=== PATIENT | male | born 1950 | race Caucasian/White ===

== ENCOUNTER 2023-10-30 11:20 | Emergency (ER) | payer OTHER, MEDICARE, SELFPAY ==
--- NOTE | ~2023-10-30 | XR_ITS ---
EXAMINATION: XR HAND/WRIST, LEFT CLINICAL INFORMATION: Pain COMPARISON: None TECHNIQUE: Four views of the left hand and wrist. FINDINGS: Diffuse bone demineralization. Bony alignment is anatomic. No visible acute fracture or dislocation. Arthritis present. More prominent findings of severe triscaphe joint, moderate-severe first CMC joint arthritis. No abnormal soft tissue calcification seen. XR/XR hand wrist LT IMPRESSION: Osteopenia. No radiographic evidence of acute fracture. Arthritis present. Severe triscaphe joint arthritis.
--- NOTE | ~2023-10-30 | XR_ITS ---
EXAMINATION: XR SHOULDER, LEFT CLINICAL INFORMATION: Pain COMPARISON: None available. TECHNIQUE: Three views of the left shoulder. FINDINGS: Mild acromioclavicular arthritis. Mild glenohumeral joint arthritis. No evidence of acute fracture or dislocation. No abnormal soft tissue calcification. XR/XR shoulder LT min 2V IMPRESSION: Mild glenohumeral and acromioclavicular arthritis.
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
--- NOTE | ~2023-10-30 | XR_ITS ---
EXAMINATION: XR CHEST CLINICAL INFORMATION: Shortness of breath COMPARISON: None available. TECHNIQUE: 2 frontal view of the chest was obtained. FINDINGS: Cardiac and mediastinal silhouette is within normal limits. There is hazy opacity in the left lung base, which could reflect small pleural pleural effusion or atelectasis. Airspace opacity right upper lobe measuring 3.2 x 2.7 cm. No pulmonary edema. No pneumothorax is seen. XR/XR chest 1V IMPRESSION: Right upper lobe airspace opacity measuring 3.2 x 2.7 cm. This of uncertain etiology, differential consideration include inflammatory/infectious process, neoplastic etiology not excluded. There are no priors available for comparison. Consider CT for further evaluation. If further characterization is not obtained at this stage, recommend follow-up imaging until resolution. Left basilar opacity could reflect small effusion with atelectasis. The report will be called to the ordering clinician by a [place] [facility] Physician Automatic Machines Supervisor.
[2023-10-30 11:34] VITALS: BP 126/70; PULSE 76; RESP 22; TEMP 35.6; O2SAT 93; BMI 37.7
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
[2023-10-30] MEDS: Lidocaine 4 % Patch ADH..PATCH 1 PATCH TRANSDERMA (15:18)
[2023-10-30 16:31] VITALS: BP 147/93; PULSE 72; RESP 20
--- NOTE | 2023-10-30 16:54 | PC.NURSE ---
patient plan for transfer to [facility] due to CT head results. IV line placed and patient vitals updated. this RN attempted to call [facility] ED x 5 and no answer. will continue to attempt to reach ED for RN to RN report. patient waiting for ems for transport.
[2023-10-30 17:12] VITALS: BP 132/67; PULSE 66; RESP 20; TEMP 36.7; O2SAT 95
--- NOTE | 2023-10-30 17:13 | PC.NURSE ---
report given to Roselyn RODAS at [facility]
[2023-10-30 19:28] VITALS: BP 148/73; PULSE 66; RESP 22; TEMP 36.6; O2SAT 95
[2023-10-30 20:16] VITALS: BP 178/73; PULSE 66; RESP 22; TEMP 36.6; O2SAT 95
== END 2023-10-30 19:30 | disposition short-term general hospital (02) ==
PROVIDERS: Emergency Provider Emergency Medicine; PCP Internal Medicine
DX: S06.30AA Unspecified focal traumatic brain injury with loss of consciousness status unknown, initial encounter (principal); V43.62XA Car passenger injured in collision with other type car in traffic accident, initial encounter; Y93.9 Activity, unspecified; Y92.410 Unspecified street and highway as the place of occurrence of the external cause; Y99.9 Unspecified external cause status; M54.89 Other dorsalgia; M25.532 Pain in left wrist; M25.512 Pain in left shoulder
CPT/HCPCS: 70450; 71045; 72125; 73030; 73110; 73130; 99284; 99285

== ENCOUNTER 2023-11-19 10:05 | Outpatient (AMB) | payer OTHER, MEDICARE, SELFPAY ==
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
[2023-11-19 10:08] VITALS: BP 140/78; PULSE 79; O2SAT 95; BMI 38.0
== END 2023-11-19 10:46 | disposition home or self-care (01) ==
PROVIDERS: PCP Internal Medicine; Referring Provider Internal Medicine; Visit Provider Nurse Practitioner Family
DX: J44.9 Chronic obstructive pulmonary disease, unspecified (principal); R91.8 Other nonspecific abnormal finding of lung field
CPT/HCPCS: 99204

== ENCOUNTER → 2023-11-19 10:05 | Outpatient (BNVA) | payer OTHER, MEDICARE, SELFPAY | PROVIDERS: PCP Internal Medicine; Referring Provider Internal Medicine; Visit Provider Nurse Practitioner Family ==

== ENCOUNTER 2023-12-20 10:13 | Outpatient (AMB) | payer MEDICARE, SELFPAY ==
[2023-12-20 10:15] VITALS: BP 140/78; PULSE 84; O2SAT 94; BMI 38.7
--- NOTE | 2023-12-20 10:15 | A.OFFVIS_ITS ---
Vital Signs 3 12/20/23 10:15 Height 5 ft 11 in Weight 277 lb 6 oz BMI 38.7 BP 140/78 H Blood Pressure Location Rt brachial Position Sitting Pulse 84 Pulse Source Pulse Oximeter Pulse Oximetry (%) 94 Oxygen Delivery Method Room Air Intake Visit Reasons: abnormal chest x-ray Allergies No Known Allergies Allergy (Unverified 12/20/23 10:19) HPI HPI abnormal chest x-ray: Details: Sujit is a pleasant 73 year old male, former smoker with 50+ pack year history, quit 2018, with underlying COPD, HTN, [place] s/p 2 stents on plavix, and CAD. He was initially referred for incidental finding on CT which revealed 2 cm RUL nodule. At the last visit, he was sent for PET scan and given prednisone for exacerbation. Today he presents to review results. Since prednisone he reports improvements in wheezing. He continues to use DuoNeb for dyspnea with good effect. We previously discussed a daily inhaler however he declined. [facility] Medical History (Updated 12/05/23 @ 12:45 by Ester Gregory PA-C) CAD (coronary artery disease) Hypertension COPD (chronic obstructive pulmonary disease) Personal history of nicotine dependence Obesity Surgical History (Updated 12/05/23 @ 12:45 by Ester Gregory PA-C) History of heart artery stent History of umbilical hernia repair Social History Patient Tobacco Use Status: Former Tobacco user Review of Systems Const Denies chills, Denies excessive sweating, Denies fever(s), Denies headache(s) and Denies night sweats Eyes Denies dry eyes, Denies irritation and Denies itchy eyes ENT Reports Normal hearing present, Denies headache(s), Denies nasal congestion, Denies nasal discharge, Denies post nasal drip and Denies sore throat Card Denies chest pain, Denies chest pain at rest, Denies chest pain with activity, Denies claudication, Denies leg edema, Denies orthopnea and Denies paroxysmal nocturnal dyspnea Resp Denies chest congestion, Denies excessive phlegm production, Denies pain on inspiration, Denies pain with cough and Denies stridor Musc Denies myalgias Neuro Reports Normal hearing present and Denies headache(s) Endo Denies excessive sweating Oren/Lymph Denies lymphadenopathy Aller/Immun Denies itchy eyes and Denies seasonal rhinorrhea Physical Exam Vital Signs: Last Vital Signs Pulse 84 12/20/23 10:15 BP 140/78 H 12/20/23 10:15 Pulse Ox 94 12/20/23 10:15 Oxygen Delivery Method Room Air 12/20/23 10:15 BMI result Body Mass Index 38.7 Const General: cooperative, comfortable, no acute distress, well developed and alert Nutritional Appearance: obese Orientation/consciousness: patient oriented x3 Limitations: no limitations HEENT Head: Yes normal to inspection, Yes normocephalic and Yes atraumatic Ears: hearing grossly normal bilaterally and external ears normal Eyes General: appearance normal, both eyes and all related structures Eyelids: Yes eyelids normal Sclerae: sclerae normal EOM: EOMs intact bilaterally Neck Neck: Yes normal visual inspection and Yes no lymphadenopathy Lymphatic: no lymphadenopathy noted Chest Chest palpation & inspection: normal inspection of the chest Resp Effort & Inspection: normal respiratory effort, able to speak in complete sentences, no stridor, not tachypneic, no tripod positioning and no use of accessory muscles Auscultation: no wheezes and diminished lung sounds Cardio Jugular venous distension: no JVD Rate: regular rate Rhythm: regular rhythm Skin Other: warm, dry General skin exam: no rashes or lesions noted Neuro General: patient oriented x3 Cranial nerves: Yes Normal hearing present Cognition (Neuro): normal cognition Gait exam (Neuro): Normal gait present Extrem General: Yes normal to inspection, Yes capillary refill normal, Yes no clubbing, cyanosis or edema and Yes no pedal edema Psych Appearance: grossly normal and well kempt Speech and movement: Normal speech and movement present and Clear speech present Affect: normal affect Attitude: cooperative Thought process: Normal thought process present Thought content: Normal thought content present Insight: Good insight present (Psych) Judgement: Good judgement present (Psych) Results Reviewed Results Reviewed: Assessment & Plan Assessment & Plan (1) COPD (chronic obstructive pulmonary disease): Code(s): J44.9 - Chronic obstructive pulmonary disease, unspecified Category: Medical (2) Lung mass: Code(s): R91.8 - Other nonspecific abnormal finding of lung field Category: Medical Plan Reviewed PET scan which revealed FDG avid RUL nodule measuring 1.9 x 1.7 cm, SUV 9.5, as well as several avid lymph nodes, specifically the right paratracheal lymph node, measuring 1.6 cm SUV 11.3, suggestive of metastatic lymphadenopathy. We had long discussion regarding findings as well as need for further testing. Patient hesitant about proceeding with EBUS and would like time to process findings. Discussed with patient, there is a high probability this is a malignant process and testing should not be delayed. He is aware that waiting to schedule biopsy can result in further progression of likely neoplastic process. He was agreeable to schedule a telephone visit in two weeks to discuss proceeding with scheduling EBUS, but not any sooner. If he does want to proceed prior to visit, he will call the office. In regards to respiratory symptoms, he would like to continue to use DuoNeb and hold off on a maintenance inhaler. All questions were answered and patient is in agreement of plan. Will follow up in two weeks or sooner if needed. Coding Level of Care Code Est Pt Level 4 (47850) Diagnoses COPD (chronic obstructive pulmonary disease) J44.9 Lung mass R91.8
== END 2023-12-20 10:58 | disposition home or self-care (01) ==
PROVIDERS: PCP Internal Medicine; Visit Provider Nurse Practitioner Family
DX: J44.9 Chronic obstructive pulmonary disease, unspecified (principal); R91.8 Other nonspecific abnormal finding of lung field
CPT/HCPCS: 99214

== ENCOUNTER → 2023-12-20 10:13 | Outpatient (BNVA) | payer MEDICARE, SELFPAY | PROVIDERS: PCP Internal Medicine; Visit Provider Nurse Practitioner Family | DX: J44.9 Chronic obstructive pulmonary disease, unspecified (principal); I10 Essential (primary) hypertension; I25.10 Atherosclerotic heart disease of native coronary artery without angina pectoris; R91.8 Other nonspecific abnormal finding of lung field; Z87.891 Personal history of nicotine dependence | CPT/HCPCS: 99212 ==

== ENCOUNTER 2024-01-15 14:02 | Outpatient (AMB) | payer MEDICARE, SELFPAY ==
--- NOTE | 2024-01-07 13:10 | A.OFFVIS_ITS ---
Intake Visit Reasons: abnormal chest x-ray Allergies No Known Allergies Allergy (Unverified 12/20/23 10:19) HPI HPI abnormal chest x-ray: Details: Sujit is a pleasant 73 year old male, former smoker with 50+ pack year history, quit 2018, with underlying COPD, HTN, [place] s/p 2 stents on plavix, and CAD. He had PET scan performed which reveled avid 2 cm RUL nodule. We had previously discussed importance of further diagnostic testing with an EBUS however he had declined. Today's visit is conducted via telephone to rediscuss scheduling an EBUS. He denies any respiratory symptoms at this time. [facility] Medical History (Updated 12/05/23 @ 12:45 by Ester Gregory PA-C) CAD (coronary artery disease) Hypertension COPD (chronic obstructive pulmonary disease) Personal history of nicotine dependence Obesity Surgical History (Updated 12/05/23 @ 12:45 by Ester Gregory PA-C) History of heart artery stent History of umbilical hernia repair Social History (Reviewed 12/20/23 @ 10:19 by Maya Morales [facility]) Patient Tobacco Use Status: Former Tobacco user Review of Systems Const All systems reviewed & are unremarkable except as noted in HPI and below Physical Exam Const General: cooperative and no acute distress Orientation/consciousness: patient oriented x3 Resp Effort & Inspection: normal respiratory effort, able to speak in complete sentences and no audible wheezes Neuro General: patient oriented x3 Psych Mental Status: mental status grossly normal Speech and movement: Clear speech present Attitude: cooperative Thought process: Normal thought process present Thought content: Normal thought content present Insight: Good insight present (Psych) Judgement: Good judgement present (Psych) Telehealth Telehealth Telehealth Platform: Telephone Location of provider rendering services: practice address Location of patient: address on file Patient Identification confirmed using: Name, : Yes Telehealth method: voice only Patient verbally consented to treatment: Yes Patient verbally consented to billing insurance company: Yes Patient informed of any privacy concerns related to visit: Yes Assessment & Plan Assessment & Plan (1) COPD (chronic obstructive pulmonary disease): Code(s): J44.9 - Chronic obstructive pulmonary disease, unspecified Category: Medical (2) Lung mass: Code(s): R91.8 - Other nonspecific abnormal finding of lung field Category: Medical Plan Reviewed PET scan which revealed FDG avid RUL nodule measuring 1.9 x 1.7 cm, SUV 9.5, as well as several avid lymph nodes, specifically the right paratracheal lymph node, measuring 1.6 cm SUV 11.3, suggestive of metastatic lymphadenopathy. We previously discussed the need for further testing with EBUS. as there is a high probability this is a malignant process and testing should not be delayed. He agreed to move forward with EBUS, will schedule with Dr. Ibrahim and follow up to review results. All questions were answered and patient is in agreement of plan. Coding Level of Care Code Tele Est Pt Level 3 (84532) Diagnoses COPD (chronic obstructive pulmonary disease) J44.9 Lung mass R91.8
== END 2024-01-15 14:03 | disposition home or self-care (01) ==
LOC: HO.HPSW 14:02
PROVIDERS: PCP Internal Medicine; Visit Provider Nurse Practitioner Family
DX: J44.9 Chronic obstructive pulmonary disease, unspecified (principal); R91.8 Other nonspecific abnormal finding of lung field
CPT/HCPCS: 99442

== ENCOUNTER → 2024-01-15 14:02 | Outpatient (BNVA) | payer MEDICARE, SELFPAY | PROVIDERS: PCP Internal Medicine; Visit Provider Nurse Practitioner Family | DX: J44.9 Chronic obstructive pulmonary disease, unspecified (principal); R91.8 Other nonspecific abnormal finding of lung field ==

== ENCOUNTER 2024-04-20 11:39 | Day surgery (SDC) | payer MEDICARE, MEDICAID, SELFPAY ==
[2024-04-07 15:25] VITALS: BMI 23.7
--- NOTE | 2024-04-16 12:03 | P.CONAN_ITS ---
HPI - Anesthesia Eval Consult details Narrative: 73yo M for Endoscopic Bronchial Ultrasound Hx of CAD s/p stent 2019. (Old infarct on EKG noted from 2014). Only following with PCP (no cardiac f/u since 2020). Pt remains on plavix/asa. PCP aware, no change to treatment plan per 12/2023 office visit - no CP/QUACH at baseline r/t current pulmo disease Recent EKG for [facility] ER visit at baseline PMFSH Active Problems Active Problems: All Active Problems Right upper lobe pulmonary nodule (Acute) Personal history of nicotine dependence (Acute) COPD (chronic obstructive pulmonary disease) (Acute) Past Medical History Medical History (Updated 04/07/24 @ 15:30 by Kathia Bales, ADRIANNA) Claustrophobia Elevated cholesterol Arthritis Back pain Numbness Anxiety Obesity CAD (coronary artery disease) Hypertension Personal history of nicotine dependence COPD (chronic obstructive pulmonary disease) Surgical History Surgical History (Updated 04/07/24 @ 15:24 by Kathia Bales, RN) History of carpal tunnel release (~01/2024) History of heart artery stent History of umbilical hernia repair Social History Social History (Updated 04/07/24 @ 15:27 by Kathia Bales, RN) Are you a primary palliative care coordinator to a significant other at home: No Do you presently have visiting nurse or other home services: No Patient Tobacco Use Status: Former Tobacco user Tobacco use type: Cigarette Smoked in Last 30 Days: No Use of substances other than those prescribed or required for medical reasons: No Have you been hit, kicked, punched, or otherwise hurt by someone within the past year? If so, by whom?: No Are you DNR?: No Advance Directives: No Advance Directives Information Provided: No Advance Directives on File: No Recently lost weight without trying: No Nutrition Risks: No Nutritional Risk Poor oral hygiene: No Meds Allergies Allergy/AdvReac Type Severity Reaction Status Date / Time No Known Allergies Allergy Verified 04/07/24 15:30 Home Medications ?Medication ?Instructions ?Recorded ?Confirmed ?Last Taken ?Type albuterol sulfate 2.5 mg/3 mL 2.5 mg inhalation Q4H PRN wheezing 11/19/23 04/07/24 Unknown History (0.083 %) solution for nebulization albuterol sulfate 90 mcg/actuation 2 puff inhalation Q4H PRN wheezing 11/19/23 04/07/24 Unknown History aerosol inhaler amlodipine 2.5 mg tablet 2.5 mg PO DAILY 11/19/23 04/07/24 Unknown History aspirin 81 mg tablet,delayed 81 mg PO DAILY 11/19/23 04/07/24 Unknown History release (Adult Low Dose Aspirin) atorvastatin 40 mg tablet 40 mg PO QPM 11/19/23 04/07/24 Unknown History clopidogrel 75 mg tablet 75 mg PO DAILY 11/19/23 04/07/24 Unknown History hydroxyzine HCl 25 mg tablet 25 mg PO TID PRN anxiety 11/19/23 04/07/24 Unknown History metoprolol succinate 25 mg 25 mg PO DAILY 11/19/23 04/07/24 Unknown History tablet,extended release 24 hr sertraline 50 mg tablet 50 mg PO DAILY 11/19/23 04/07/24 Unknown History Exam Height,Weight and Vital Signs: Height 6 ft Weight 79.379 kg Pertinent Lab Results Pertinent Lab Results: 02/2024 CBC with mild low H&H, BMP OK Narrative Narrative: EKG 02/2024 [id number] Ventricular Rate: 61 BPM Atrial Rate: 61 BPM P-R Interval: 178 ms QRS Duration: 100 ms Q-T Interval: 442 ms QTC Calculation(Bazett): 444 ms P [place]: 54 degrees R [place]: 9 degrees T [place]: 54 degrees Normal sinus rhythm infero- posterior infarct (cited on or before 07-May-2014) Abnormal ECG When compared with ECG of 16-May-2021 20:24, No significant change was found Confirmed by PHIL PAINTING, THERESA ([id number]) on 03/27/2024 5:24:[address] 02/2024 IMPRESSION: 1. 24 mm spiculated right upper lobe nodule is slightly increased in size since 10/31/2023. Spiculations extend to the visceral pleura and there is no gross chest wall invasion. 2. No pleural disease. 3. Substantial increase in size of a mediastinal lymph node since 10/31/2023. 4. No bony abnormality. Assessment and Plan Assessment Anesthesia Assessment: Chart Reviewed
[2024-04-20] VITALS (14 sets, daily range): BP systolic 133–179; BP diastolic 75–88; PULSE 62–82; RESP 16–20; TEMP 36.1; O2SAT 90–98; BMI 37.3
--- NOTE | 2024-04-20 11:24 | HO.ANESPROP2 ---
[facility] Active Problems Active Problems: All Active Problems Right upper lobe pulmonary nodule (Acute) Personal history of nicotine dependence (Acute) COPD (chronic obstructive pulmonary disease) (Acute) Past Medical History Medical History Claustrophobia Elevated cholesterol Arthritis Back pain Numbness Anxiety Obesity CAD (coronary artery disease) Hypertension Personal history of nicotine dependence COPD (chronic obstructive pulmonary disease) Functional capacity: independent ambulation Family History Family history of problems with anesthesia: No Surgical History Surgical History History of carpal tunnel release (~01/2024) History of heart artery stent History of umbilical hernia repair History of Problems with Anesthesia: No Social History Social History Are you a primary rn patient care to a significant other at home: No Do you presently have visiting nurse or other home services: No Patient Tobacco Use Status: Former Tobacco user Tobacco use type: Cigarette Smoked in Last 30 Days: No Use of substances other than those prescribed or required for medical reasons: No Have you been hit, kicked, punched, or otherwise hurt by someone within the past year? If so, by whom?: No Are you DNR?: No Advance Directives: No Advance Directives Information Provided: No Advance Directives on File: No Recently lost weight without trying: No Nutrition Risks: No Nutritional Risk Poor oral hygiene: No Meds Allergies Allergy/AdvReac Type Severity Reaction Status Date / Time No Known Allergies Allergy Verified 04/07/24 15:30 Home Medications ?Medication ?Instructions ?Recorded ?Confirmed ?Last Taken ?Type albuterol sulfate 2.5 mg/3 mL 2.5 mg inhalation Q4H PRN wheezing 11/19/23 04/07/24 Unknown History (0.083 %) solution for nebulization albuterol sulfate 90 mcg/actuation 2 puff inhalation Q4H PRN wheezing 11/19/23 04/07/24 Unknown History aerosol inhaler amlodipine 2.5 mg tablet 2.5 mg PO DAILY 11/19/23 04/07/24 Unknown History aspirin 81 mg tablet,delayed 81 mg PO DAILY 11/19/23 04/07/24 Unknown History release (Adult Low Dose Aspirin) atorvastatin 40 mg tablet 40 mg PO QPM 11/19/23 04/07/24 Unknown History clopidogrel 75 mg tablet 75 mg PO DAILY 11/19/23 04/07/24 Unknown History hydroxyzine HCl 25 mg tablet 25 mg PO TID PRN anxiety 11/19/23 04/07/24 Unknown History metoprolol succinate 25 mg 25 mg PO DAILY 11/19/23 04/07/24 Unknown History tablet,extended release 24 hr sertraline 50 mg tablet 50 mg PO DAILY 11/19/23 04/07/24 Unknown History Exam Height,Weight and Vital Signs: Height 6 ft Weight 79.379 kg Assessment and Plan Final Anesthetic Review Family History of Problems with Anesthesia: No History of Problems with Anesthesia: No
[2024-04-20] MEDS: Lactated Ringers 1,000 ML 80 ML IVCONT (12:23)
--- NOTE | 2024-04-20 12:40 | HO.ANESPROP2 ---
[facility] Active Problems Active Problems: All Active Problems Right upper lobe pulmonary nodule (Acute) Personal history of nicotine dependence (Acute) COPD (chronic obstructive pulmonary disease) (Acute) Past Medical History Medical History Claustrophobia Elevated cholesterol Arthritis Back pain Numbness Anxiety Obesity CAD (coronary artery disease) Hypertension Personal history of nicotine dependence COPD (chronic obstructive pulmonary disease) Functional capacity: independent ambulation Family History Family history of problems with anesthesia: No Surgical History Surgical History History of carpal tunnel release (~01/2024) History of heart artery stent History of umbilical hernia repair History of Problems with Anesthesia: No Social History Social History Are you a primary child care provider to a significant other at home: No Do you presently have visiting nurse or other home services: No Patient Tobacco Use Status: Former Tobacco user Tobacco use type: Cigarette Smoked in Last 30 Days: No Use of substances other than those prescribed or required for medical reasons: No Have you been hit, kicked, punched, or otherwise hurt by someone within the past year? If so, by whom?: No Are you DNR?: No Advance Directives: No Advance Directives Information Provided: Yes Advance Directives on File: No Recently lost weight without trying: No Nutrition Risks: No Nutritional Risk Poor oral hygiene: No Meds Allergies Allergy/AdvReac Type Severity Reaction Status Date / Time No Known Allergies Allergy Verified 04/07/24 15:30 Active Medications: Current Medications Lactated Ringer's (Lr) 1,000 mls @ 80 mls/hr IVCONT .[id number] DENNIS Last Admin: 04/20/24 12:23 Dose: 80 mls/hr Home Medications ?Medication ?Instructions ?Recorded ?Confirmed ?Last Taken ?Type albuterol sulfate 2.5 mg/3 mL 2.5 mg inhalation Q4H PRN wheezing 11/19/23 04/07/24 Unknown History (0.083 %) solution for nebulization albuterol sulfate 90 mcg/actuation 2 puff inhalation Q4H PRN wheezing 11/19/23 04/07/24 04/20/24 History aerosol inhaler amlodipine 2.5 mg tablet 2.5 mg PO DAILY 11/19/23 04/07/24 Unknown History aspirin 81 mg tablet,delayed 81 mg PO DAILY 11/19/23 04/07/24 04/15/24 History release (Adult Low Dose Aspirin) atorvastatin 40 mg tablet 40 mg PO QPM 11/19/23 04/07/24 Unknown History clopidogrel 75 mg tablet 75 mg PO DAILY 11/19/23 04/07/24 04/15/24 History hydroxyzine HCl 25 mg tablet 25 mg PO TID PRN anxiety 11/19/23 04/07/24 Unknown History metoprolol succinate 25 mg 25 mg PO DAILY 11/19/23 04/07/24 Unknown History tablet,extended release 24 hr sertraline 50 mg tablet 50 mg PO DAILY 11/19/23 04/07/24 Unknown History Exam Height,Weight and Vital Signs: Height 6 ft Weight 124.795 kg Last Vital Signs Temp 97.0 F 04/20/24 12:01 Pulse 78 04/20/24 12:01 Resp 18 04/20/24 12:01 BP 133/75 04/20/24 12:01 Pulse Ox 91 L 04/20/24 12:01 O2 Del Method Room Air 04/20/24 12:01 Airway Mallampati Class: II TM Dist: >3cm Neck ROM: Full Heart: RRR Assessment and Plan Final Anesthetic Review Family History of Problems with Anesthesia: No History of Problems with Anesthesia: No
--- NOTE | 2024-04-20 12:58 | P.HPSUR_ITS ---
Pre-Procedural Eval Section A - 24 Hr Update-Section A only Date of Service: 04/20/24 The patient is an INPATIENT: No Changes since office visit: Yes Patient answered all questions; No Cold of Flu in the past 2 weeks, No New Medical Problems and No Changes in Medication The patient has been examined within 24 hours of the surgical procedure. The History & Physical has been completed within 30 days and I have reviewed it.: No Section B - Complete if H&P > 30 days Chief Complaint: Mediastinal lymphadenopathy Relevant Family History (Specify if Yes): No Relevant Social History: Tobacco Use Present Medications: see Short Stay Collaborative assessment Medical History: Significant History (COPD) History of Previous Operations: No relevant previous surgery Allergies: Allergies Allergy/AdvReac Type Severity Reaction Status Date / Time No Known Allergies Allergy Verified 04/07/24 15:30 Review of Systems Sugical H&P ROS: Negative: Constitution, Cardiovascular, Respiratory, Neurologi navya, Psychiatric, Hem-Onc, Allergic/Immunologic, Gastrointestinal, Genitourinary, Musculoskeletal, Integumentary, Endocrine and Eyes/Ears/Nose/Throat Exam Surgical H&P Exam: Normal: HEENT, Normal: Heart, Normal: Lungs, Normal: Extremities, Normal: Abdomen, Normal: Skin and Normal: Neurological Plan Diagnosis/Plan: Unchanged I have reviewed the history and physical and performed a pertinent physical examination on my patient. No changes have occurred unless specified. Time Spent With Patient Time: Total time managing care of this patient today ____ minutes.
--- NOTE | 2024-04-20 13:36 | P.CONAN_ITS ---
[facility], [facility] Active Problems Active Problems: All Active Problems Right upper lobe pulmonary nodule (Acute) Personal history of nicotine dependence (Acute) COPD (chronic obstructive pulmonary disease) (Acute) Past Medical History Medical History Claustrophobia Elevated cholesterol Arthritis Back pain Numbness Anxiety Obesity CAD (coronary artery disease) Hypertension Personal history of nicotine dependence COPD (chronic obstructive pulmonary disease) Functional capacity: independent ambulation Family History Family history of problems with anesthesia: No Surgical History Surgical History History of carpal tunnel release (~01/2024) History of heart artery stent History of umbilical hernia repair History of Problems with Anesthesia: No Social History Social History Are you a primary healthcare economics manager to a significant other at home: No Do you presently have visiting nurse or other home services: No Patient Tobacco Use Status: Former Tobacco user Tobacco use type: Cigarette Smoked in Last 30 Days: No Use of substances other than those prescribed or required for medical reasons: No Have you been hit, kicked, punched, or otherwise hurt by someone within the past year? If so, by whom?: No Are you DNR?: No Advance Directives: No Advance Directives Information Provided: Yes Advance Directives on File: No Recently lost weight without trying: No Nutrition Risks: No Nutritional Risk Poor oral hygiene: No Meds Allergies Allergy/AdvReac Type Severity Reaction Status Date / Time No Known Allergies Allergy Verified 04/07/24 15:30 Active Medications: Current Medications Lactated Ringer's (Lr) 1,000 mls @ 80 mls/hr IVCONT .[id number] DENNIS Last Admin: 04/20/24 12:23 Dose: 80 mls/hr Home Medications ?Medication ?Instructions ?Recorded ?Confirmed ?Last Taken ?Type albuterol sulfate 2.5 mg/3 mL 2.5 mg inhalation Q4H PRN wheezing 11/19/23 04/07/24 Unknown History (0.083 %) solution for nebulization albuterol sulfate 90 mcg/actuation 2 puff inhalation Q4H PRN wheezing 11/19/23 04/07/24 04/20/24 History aerosol inhaler amlodipine 2.5 mg tablet 2.5 mg PO DAILY 11/19/23 04/07/24 Unknown History aspirin 81 mg tablet,delayed 81 mg PO DAILY 11/19/23 04/07/24 04/15/24 History release (Adult Low Dose Aspirin) atorvastatin 40 mg tablet 40 mg PO QPM 11/19/23 04/07/24 Unknown History clopidogrel 75 mg tablet 75 mg PO DAILY 11/19/23 04/07/24 04/15/24 History hydroxyzine HCl 25 mg tablet 25 mg PO TID PRN anxiety 11/19/23 04/07/24 Unknown History metoprolol succinate 25 mg 25 mg PO DAILY 11/19/23 04/07/24 Unknown History tablet,extended release 24 hr sertraline 50 mg tablet 50 mg PO DAILY 11/19/23 04/07/24 Unknown History Exam Height,Weight and Vital Signs: Height 6 ft Weight 124.795 kg Last Vital Signs Temp 97.0 F 04/20/24 12:01 Pulse 78 04/20/24 12:01 Resp 18 04/20/24 12:01 BP 133/75 04/20/24 12:01 Pulse Ox 91 L 04/20/24 12:01 O2 Del Method Room Air 04/20/24 12:01 Airway Mallampati Class: III TM Dist: >3cm Neck ROM: Full Denture: Upper Partial: Lower Heart: RRar Lungs: Diminished bl. Assessment and Plan Assessment Anesthesia Assessment: Anesthesia Plan Discussed and Chart Reviewed Final Anesthetic Review Family History of Problems with Anesthesia: No History of Problems with Anesthesia: No NPO: Yes ASA Class: III Final Preanesthetic Review: Meds/Allgs Chart Reviewed, Consent Obtained/Reviewed and Anes Risks/Benef Reviewed Patient Risk: Intermediate Procedure Risk: Low Anesthetic Plan Anesthetic Plan: GA Disposition: Standard PACU
--- NOTE | 2024-04-20 14:55 | PM.OP ---
Brief Operative Note Date of Service: 04/20/24 Pre-op diagnosis: Mediastinal lymphadenopathy Post-op diagnosis: same Procedure: Bronchoscope advanced through the ET tube with patient intubated the procedure and through the tracheobronchial tree, copious amount of thin clear mucus noted in suctioned with normal bronchial mucosa noted underneath. No endobronchial lesions noted. Thereafter endobronchial ultrasound-guided needle biopsy of stations 7 and 4R performed with tissue sent for pathologic testing. Biopsy sites were observed and no active bleeding was noted. Patient tolerated procedure well and was transferred to PACU in stable condition. Surgeon: Danyel Ibrahim MD Anesthesia: GETA Was an Electrical Mechanical Technician used for this Procedure?: No Estimated blood loss (mL): 0 Condition: stable Disposition: PACU
[2024-04-20] MEDS: ondansetron HCL 4 MG/2 ML VIAL IVPUSH ×2 (15:13→16:28)
[2024-04-20] MEDS: fentaNYL citrate/PF 100 MCG/2 ML VIAL 25 MCG IVPUSH (15:18)
== END 2024-04-20 16:50 | disposition home or self-care (01) ==
PROVIDERS: PCP Internal Medicine; Visit Provider Internal Medicine Pulmonary Disease
PROC: (CPT 31625; principal; 2024-04-20 13:00)
DX: C77.1 Secondary and unspecified malignant neoplasm of intrathoracic lymph nodes (principal); R59.0 Localized enlarged lymph nodes; R91.1 Solitary pulmonary nodule; J44.9 Chronic obstructive pulmonary disease, unspecified; I10 Essential (primary) hypertension; E78.00 Pure hypercholesterolemia, unspecified; I25.10 Atherosclerotic heart disease of native coronary artery without angina pectoris; F40.240 Claustrophobia; F41.9 Anxiety disorder, unspecified; Z87.891 Personal history of nicotine dependence; Z79.82 Long term (current) use of aspirin; Z79.899 Other long term (current) drug therapy
CPT/HCPCS: 31625; 88172; 88173; 88177; 88305; 88341; 88342; J0171; J2003; J2250; J2405; J2704; J3010

== ENCOUNTER → 2024-04-20 11:39 | Outpatient (BNV) | payer MEDICARE, MEDICAID, SELFPAY | PROVIDERS: PCP Internal Medicine; Visit Provider Internal Medicine Pulmonary Disease | DX: R59.9 Enlarged lymph nodes, unspecified (principal) | CPT/HCPCS: 31652 ==

== ENCOUNTER → 2024-05-01 10:03 | Outpatient (BNV) | payer MEDICARE, MEDICAID, SELFPAY | PROVIDERS: PCP Internal Medicine; Referring Provider Nurse Practitioner Family; Visit Provider Internal Medicine | DX: C34.90 Malignant neoplasm of unspecified part of unspecified bronchus or lung (principal); C77.9 Secondary and unspecified malignant neoplasm of lymph node, unspecified; R06.02 Shortness of breath; Z87.891 Personal history of nicotine dependence | CPT/HCPCS: 99205; G2211 ==

== ENCOUNTER 2024-05-04 10:13 | Outpatient (REF) | payer MEDICARE, MEDICAID, SELFPAY ==
--- NOTE | ~2024-05-04 | XR_ITS ---
CLINICAL HISTORY: worsening SOB 2 view chest x-ray Comparison: 10/30/2023 Findings: No significant change in blunting of the left lateral costophrenic recess with neighboring hazy left basilar opacity. Nonprogressive 27 mm right upper lung opacity with neighboring mild fibrotic changes/increased lung markings. If not already performed, CT recommended for further evaluation. No significant change in cardiomediastinal silhouette No acute fracture. IMPRESSION: No significant change in blunting of the left lateral costophrenic recess with neighboring hazy left basilar opacity. Nonprogressive 27 mm right upper lung opacity with neighboring mild fibrotic changes/increased lung markings. If not already performed, CT recommended for further evaluation. This document has been electronically signed by: Moraima Nix MD on 05/04/2024 13:23:57
== END 2024-05-04 10:14 | disposition home or self-care (01) ==
LOC: HO.XRAY 10:13
PROVIDERS: PCP Internal Medicine; Visit Provider Internal Medicine
DX: R06.02 Shortness of breath (principal); J44.9 Chronic obstructive pulmonary disease, unspecified; C34.90 Malignant neoplasm of unspecified part of unspecified bronchus or lung
CPT/HCPCS: 71046; 94618; 99211

== ENCOUNTER 2024-05-04 10:23 | Outpatient (AMB) | payer MEDICARE, MEDICAID, SELFPAY ==
--- NOTE | 2024-05-04 12:49 | A.OFFVIS_ITS ---
Intake Visit Reasons: 6MWT Allergies No Known Allergies Allergy (Verified 04/07/24 15:30) [facility] Medical History Claustrophobia Elevated cholesterol Arthritis Back pain Numbness Anxiety Obesity CAD (coronary artery disease) Hypertension Personal history of nicotine dependence COPD (chronic obstructive pulmonary disease) Surgical History History of carpal tunnel release (~01/2024) History of heart artery stent History of umbilical hernia repair Social History (Updated 05/01/24 @ 10:25 by Ian Barajas) Household Members: None Are you a primary day care teacher to a significant other at home: No Do you presently have visiting nurse or other home services: No Patient Tobacco Use Status: Former Tobacco user Tobacco use type: Cigarette service: No Current occupational status: retired Sexual orientation: Straight/Heterosexual Gender identity: Male Office Procedures 6 Minute Walk Time:: 10:40 SPO2 % at rest: 93 Pulse at rest: 71 SPO2 % during excercise: 86 Pulse during excercise: 92 SPO2 % after excercise: 94 Pulse after excercise: 88 Distance in yards walked: 100 Dannielle Score: 9 Performance Observations:: Patient walked on level ground unassisted slowly..after approx 1 minute O2 saturation dropped to 86% and patient was very dyspneic. Stopped to rest and O2 applied at 2L via nasal cannula..O2 saturation increased to 90% and then 93%. Patient tires easily. Walked slowly with O2 on and maintained O2 sat >90%. Patient will benefit from supplemental oxygen. [address]5436 - 6 Minute Walk Assessment & Plan Assessment & Plan (1) COPD (chronic obstructive pulmonary disease): Code(s): J44.9 - Chronic obstructive pulmonary disease, unspecified Category: Medical (2) Adenocarcinoma of lung: Code(s): C34.90 - Malignant neoplasm of unspecified part of unspecified bronchus or lung Category: Medical Plan nurse visit for 6MWT Orders: Orders AMB 6 minute walk Today C34.90 - Malignant neoplasm of unspecified part of unspecified bronchus or lung, J44.9 - Chronic obstructive pulmonary disease, unspecified Coding Level of Care Code Est Pt Level 1 (59066) Diagnoses COPD (chronic obstructive pulmonary disease) J44.9 Adenocarcinoma of lung C34.90 CPT Codes Coding ([id number])
[2024-05-04 12:58] VITALS: PULSE 71; O2SAT 93
== END 2024-05-04 11:59 | disposition home or self-care (01) ==
PROVIDERS: PCP Internal Medicine; Visit Provider Nurse Practitioner Family
DX: J44.9 Chronic obstructive pulmonary disease, unspecified (principal); C34.90 Malignant neoplasm of unspecified part of unspecified bronchus or lung
CPT/HCPCS: 94618

== ENCOUNTER → 2024-05-04 10:51 | Outpatient (BNV) | payer MEDICARE, MEDICAID, SELFPAY | PROVIDERS: PCP Internal Medicine; Visit Provider Radiology Diagnostic Radiology | DX: J84.10 Pulmonary fibrosis, unspecified (principal) | CPT/HCPCS: 71046 ==

== ENCOUNTER 2024-05-06 10:02 | Outpatient (AMB) | payer MEDICARE, MEDICAID, SELFPAY ==
[2024-05-06 10:24] VITALS: PULSE 78; O2SAT 87; BMI 36.9
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
== END 2024-05-06 11:10 | disposition home or self-care (01) ==
PROVIDERS: PCP Internal Medicine; Visit Provider Nurse Practitioner Family
DX: J44.9 Chronic obstructive pulmonary disease, unspecified (principal); C34.90 Malignant neoplasm of unspecified part of unspecified bronchus or lung
CPT/HCPCS: 99214; G2211

== ENCOUNTER → 2024-05-06 10:02 | Outpatient (BNVA) | payer MEDICARE, MEDICAID, SELFPAY | PROVIDERS: PCP Internal Medicine; Visit Provider Nurse Practitioner Family | DX: J44.9 Chronic obstructive pulmonary disease, unspecified (principal); C34.90 Malignant neoplasm of unspecified part of unspecified bronchus or lung | CPT/HCPCS: 99212 ==

== ENCOUNTER → 2024-05-20 10:53 | Outpatient (BNVA) | payer MEDICARE, MEDICAID, SELFPAY | PROVIDERS: PCP Internal Medicine; Visit Provider Nurse Practitioner Family | DX: J44.9 Chronic obstructive pulmonary disease, unspecified (principal); C34.90 Malignant neoplasm of unspecified part of unspecified bronchus or lung ==

== ENCOUNTER 2024-05-24 16:09 | Outpatient (REF) | payer MEDICARE, MEDICAID, SELFPAY ==
--- NOTE | ~2024-05-24 | MR_ITS ---
CLINICAL HISTORY: staging lung cancer Per pt, there is no symptoms. Checking for lung CA staging. Pt breathed heavily through out the scan, tried BLADE. Unable to repeat MR Brain with and without gadolinium Comparison: CT/NV/SR - CT HEAD/BRAIN WO IV CON - 10/30/23 14:45 EDT Findings: 11 mm enhancing nodule within the superomedial right frontal lobe. 5 mm enhancing nodule within the lateral right frontal lobe. 18 mm enhancing nodule within the left parietal lobe. Adjacent vasogenic edema in association with the nodules, particularly pronounced adjacent to the left parietal lobe nodule. No midline shift. No hydrocephalus. Numerous foci of T2 hyperintensity within the white matter likely secondary to small-vessel ischemic change small focus of chronic infarction within the left frontal lobe. Vascular flow voids are intact. No acute hemorrhage. Multiple small foci of hemosiderin deposition within the bilateral cerebral hemispheres. Orbital contents are unremarkable. The sinuses and mastoid air cells are clear. No focal bone lesion. IMPRESSION: There are intra-axial nodules within the right frontal and left parietal lobes likely secondary to metastatic disease. This document has been electronically signed by: Cindy Abel MD on 05/24/2024 18:58:29
[2024-05-24] MEDS: gadobutroL 10 ML VIAL IVPUSH (17:52)
== END 2024-05-24 16:10 | disposition home or self-care (01) ==
LOC: HO.MRI 16:09
PROVIDERS: PCP Internal Medicine; Visit Provider Internal Medicine
DX: C34.90 Malignant neoplasm of unspecified part of unspecified bronchus or lung (principal)
CPT/HCPCS: 70553; A9585

== ENCOUNTER → 2024-05-24 16:24 | Outpatient (BNV) | payer MEDICARE, MEDICAID, SELFPAY | PROVIDERS: PCP Internal Medicine; Visit Provider Radiology Diagnostic Radiology | DX: R90.0 Intracranial space-occupying lesion found on diagnostic imaging of central nervous system (principal) | CPT/HCPCS: 70553 ==

== ENCOUNTER 2024-05-29 11:56 | Day surgery (SDC) | payer MEDICARE, MEDICAID, SELFPAY ==
[2024-05-29] VITALS (12 sets, daily range): BP systolic 124–143; BP diastolic 61–73; PULSE 66–73; RESP 9–18; TEMP 36.1–36.7; O2SAT 89–99; BMI 37.3
--- NOTE | ~2024-05-29 | IR_ITS ---
CLINICAL HISTORY: Right lung cancer. The patient presents to interventional radiology for placement of a port for chemotherapy. PROCEDURES: 1. Real-time ultrasound-guided access into the left internal jugular vein after documentation of selected vessel patency, and permanent image storing in the patient records. 2. Placement of a 6.0 [place] single-lumen power port. CLINICIAN: Boni Junior PA-C MEDICATIONS: - Versed 1.5 mg, Fentanyl 75 mcg, Lidocaine 1% 10 mL SQ -Antibiotics: Ancef 2g -For additional details, please see nursing flowsheet. Complications: None. Estimated blood loss: <5 ml Specimens: None. Contrast: None. Fluoroscopy time: 1.4 min MODERATE SEDATION TIME: 30 min PROCEDURE NOTE: The procedure, risks, benefits, and alternatives were carefully explained to the patient and written informed consent was obtained. The patient was placed supine on the fluoroscopy table. A timeout was performed. The left neck and chest was prepped and draped in usual sterile fashion. Maximum barrier technique was utilized. Local anesthesia was administered to the access site with 1% lidocaine. Under ultrasound guidance, the left internal jugular vein was accessed with a 5 fr micropuncture set. A 0.035 in wire was advanced into the IVC. A peel-away sheath was advanced over the wire and into the SVC, and the wire was removed. Next, subcutaneous lidocaine was administered to the chest. The port pocket was created after the skin incision, utilizing blunt dissection. Using blunt dissection, a subcutaneous tunnel was created that connects from the port pocket to the venotomy site. Through the peel-away sheath, the 6.0 [place] port catheter was placed. The catheter position was verified with fluoroscopy to be in the right atrium. The port was connected to the catheter and was placed in the pocket. The venotomy site was closed with a 3-0 Vicryl subcutaneous suture. The port incision site was closed with interrupted 3-0 Vicryl subcutaneous sutures and surgical glue. Prior to closing the skin, 1 g of Ancef solution was placed in the pocket. The port was tested, flushed, and packed with heparin per routine protocol. The patient tolerated the procedure well. The patient was stable after the procedure and was transferred to the PACU. The procedure was performed under moderate sedation and with a dedicated nurse with continuous monitoring of vital signs. A permanent image of the ultrasound the neck and fluoroscopic image of the chest was saved and sent to PACS. FINDINGS: 1. Patent left internal jugular vein 2. Placement of a 6.0 [place] single lumen power port. 3. Port flushes and aspirates very well with a 10 mL syringe. No pneumothorax. IR/IR cvc insert tunnel w prt/stopper setter IMPRESSION: Placement of a 6.0 [place] single-lumen power port. PLAN: - The patient will be discharged home when stable by sedation protocol. - Port may be used immediately. This procedure was performed by Boni Junior PA-C, and directly supervised by Dr. Barone Electronically signed by: Mike Barone MD 06/17/2024 04:25 PM [facility]
[2024-05-29] MEDS: Albuterol Sulfate (0.083%) 2.5 MG/3 ML VIAL.NEB INHALE (13:08)
--- NOTE | 2024-05-29 13:09 | MHC.SHP ---
Pre-Procedural Eval Section A - 24 Hr Update-Section A only Date of Service: 05/29/24 Section B - Complete if H&P > 30 days Chief Complaint: MALIGNANT NEOPLASM LUNG Details of Present Illness: 73 y/o man with right lung cancer and poor iv access Relevant Family History (Specify if Yes): No Relevant Social History: Tobacco Use Present Medications: see Short Stay Collaborative assessment Medical History: Significant History History of Previous Operations: Relevant previous surgery/procedure and date(s) Allergies: Allergies Allergy/AdvReac Type Severity Reaction Status Date / Time No Known Allergies Allergy Verified 05/29/24 12:18 Review of Systems Sugical H&P ROS: Negative: Constitution and Cardiovascular and Yes, Specify: Respiratory (chronic dyspnea) Exam Surgical H&P Exam: Normal: Heart, Normal: Skin and Normal: Neurological and Significant Findings: Lungs (b/l expiratory wheezes) Plan 73 y/o man with right lung cancer and poor iv access -Port (Left) Time Spent With Patient Time: Total time managing care of this patient today ____ minutes.
[2024-05-29] MEDS: Acetaminophen 1,000 MG/100 ML PIGGYBACK 400 MG IV (13:32)
[2024-05-29] MEDS: ceFAZolin Sodium/Dextrose,Iso 2 GM/50 ML PIGGYBACK IV (13:44)
[2024-05-29] MEDS: Midazolam HCl 5 MG/ML VIAL 1 MG IVPUSH (14:00)
[2024-05-29] MEDS: fentaNYL citrate/PF 100 MCG/2 ML VIAL 50 MCG IVPUSH (14:00)
[2024-05-29] MEDS: Midazolam HCl 5 MG/ML VIAL IVPUSH (14:07)
[2024-05-29] MEDS: fentaNYL citrate/PF 100 MCG/2 ML VIAL 25 MCG IVPUSH (14:07)
== END 2024-05-29 15:21 | disposition home or self-care (01) ==
PROVIDERS: Physician Assistant Surgical; PCP Internal Medicine; Visit Provider Internal Medicine
DX: C34.11 Malignant neoplasm of upper lobe, right bronchus or lung (principal); Z45.2 Encounter for adjustment and management of vascular access device; R59.0 Localized enlarged lymph nodes; J44.9 Chronic obstructive pulmonary disease, unspecified; J43.2 Centrilobular emphysema; I10 Essential (primary) hypertension; I25.10 Atherosclerotic heart disease of native coronary artery without angina pectoris; Z95.5 Presence of coronary angioplasty implant and graft; Z87.891 Personal history of nicotine dependence; Z99.81 Dependence on supplemental oxygen; Z79.82 Long term (current) use of aspirin; Z79.899 Other long term (current) drug therapy
CPT/HCPCS: 36561; 76937; 99152; 99153; C1769; C1788; J0131; J0690; J1642; J1644; J2003; J2250; J2310; J3010

== ENCOUNTER 2024-06-17 09:11 | Emergency (ER) | payer MEDICARE, MEDICAID, SELFPAY ==
--- NOTE | ~2024-06-17 | XR_ITS ---
EXAMINATION: XR CHEST CLINICAL INFORMATION: sob, xurrent lung ca COMPARISON: May 04, 2024 TECHNIQUE: 2 views of the chest were obtained. FINDINGS: Ill-defined opacity in the periphery of the right upper hemithorax. Pulmonary reticular pattern. Left-sided Port-A-Cath has been inserted the left internal jugular vein and ends in the right atrium region. No pneumothorax. No pleural effusion. Cardiomediastinal silhouette size is normal with calcified plaque in the aortic arch. Multilevel thoracic spondylosis. Degenerative changes in the right shoulder. XR/XR chest 2V IMPRESSION: New left-sided Port-A-Cath placed ending at the right atrium without pneumothorax. Stable appearance of the lungs. Electronically signed by: Navid Main MD 06/17/2024 10:25 AM [facility]
--- NOTE | ~2024-06-17 | CT_ITS ---
EXAMINATION: CT ANGIOGRAM CHEST CLINICAL INFORMATION: Cancer patient. Shortness of breath. COMPARISON: CT dated May 21, 2024. TECHNIQUE: Multiple axial images were obtained through the chest after the administration of 80 mL of Omnipaque 350 intravenous contrast. Extensive vascular post-processing including two-dimensional and three-dimensional reformatted images were created and reviewed on an independent workstation. SmartPrep technique. This CT examination was performed using dose optimization techniques as appropriate, variously including the following: *Automated exposure control *Adjustment of mA and/or kV according to patient size (this includes techniques or standardized protocols for targeted exams where dose is matched to indication/reason for exam; i.e. extremities or head) *Use of iterative reconstruction technique DLP: 396 mGy centimeter. FINDINGS: No intraluminal filling defects within the main pulmonary artery or its main branches. 4 cm spiculated attenuation ill-defined heterogeneous mixed density lesion in the right upper lobe likely apical segment abutting the pleura. Subtle patchy pulmonary groundglass bilaterally. Mosaic pattern. Centrilobular emphysematous changes involving mostly the upper lobes. Pleura thickening, bilaterally. Mediastinal and right perihilar lymphadenopathy. Multilevel spondylosis in the axial skeleton without acute fracture or listhesis. There is soft tissue fullness in the intrathoracic extra pleura/pleural compartment and of the posterior lateral aspect of the left seventh and eighth ribs without osteolysis. Calcified plaques in the coronary arteries and thoracic aorta. There is central venous catheter ending in the right atrium. 1 cm hypodensity in the left hepatic lobe. Atrophic spleen measuring [address]/CT angio chest PE protocol IMPRESSION: No acute pulmonary artery emboli. No thoracic aortic aneurysm or dissection. Stable malignancy right lung with associated the mediastinal and right perihilar lymphadenopathy. Questionable new metastatic lesion in the lateral compartment left seventh eighth ribs.. Fleischner guidelines were followed. Electronically signed by: Navid Main MD 06/17/2024 02:28 PM [facility]
--- NOTE | ~2024-06-17 | CT_ITS ---
EXAMINATION: CT LUMBAR SPINE WITHOUT CONTRAST CLINICAL INFORMATION: Acute on chronic back pain, metastatic lesions. COMPARISON: None available. Correlation made with PET CT 05/21/2024. TECHNIQUE: Spiral CT imaging of the lumbar spine was performed in axial plane without contrast. Sagittal, coronal, and thin section axial reformatted images were constructed from the axial data set. This CT examination was performed using dose optimization techniques as appropriate, variously including the following: *Automated exposure control *Adjustment of mA and/or kV according to patient size (this includes techniques or standardized protocols for targeted exams where dose is matched to indication/reason for exam; i.e. extremities or head) *Use of iterative reconstruction technique FINDINGS: No scoliosis. Normal lordosis. Normal alignment without subluxation. There are lytic lesions with abutting sclerosis throughout the L3 vertebral body, the largest ventrally to the right of midline measuring 2.2 cm in diameter. (There is 9, image 73). There is mild inferior endplate concavity suggesting subtle pathologic compression fracture, 10% loss of height. No retropulsion of bone. There are tiny lytic foci in the endplates of T11, appearance suggesting a mix of metastatic lesions and Schmorl's nodes. No additional fractures or additional suspicious bone lesions. Normal facet alignment. Degenerative facet changes L4-S1. Mild degenerative disc changes throughout, with severe disc degeneration L5-S1. No evidence of high-grade central canal stenosis allowing for limitations of modality. The paravertebral and paraspinous soft tissues demonstrate no abnormalities. Mild ectasia and heavy calcification of the aorta. CT/CT lumbar spine wo IV con IMPRESSION: 1. Lytic metastatic lesions in L3, with a minimal inferior endplate compression deformity, likely acute. Approximately 10% loss of height. No retropulsion of bone. 2. Subtle lytic lesion suspected in T11. No additional fractures seen. 3. Severe degenerative disc disease L5-S1. 4. Degenerative facet disease L4-S1. Electronically signed by: Brody Waddell MD 06/17/2024 02:23 PM [facility] [place]
[2024-06-17 09:17] VITALS: BP 100/50; PULSE 62; RESP 26; TEMP 36.3; O2SAT 97; BMI 38.4
--- NOTE | 2024-06-17 09:23 | ECG_ITS ---
Test Reason : chest pain Blood Pressure : */* mmHG Vent. 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
--- NOTE | 2024-06-17 09:25 | ED_ITS ---
HPI - SOB/Dyspnea General Chief Complaint: Dyspnea Stated Complaint: Trouble Breathing Time Seen by Provider: 06/17/24 10:38 Source: patient, RN notes reviewed and old records reviewed Mode of arrival: ambulatory Limitations: no limitations History of Present Illness ED Provider: LUDY YOUSIF PA-C HPI Narrative: 73 year old male, former smoker with 50+ pack year history, quit 2018, with underlying COPD on 2L O2, HTN, GA s/p 2 stents on plavix, and CAD presents to the ED today for evaluation of right sided lower back pain since yesterday. Admits cough is chronic. He denies increased cough or sputum production. He reports right lower back pain began after attempting to lift something heavy and move it around his home yesterday. Admits to taking Tramadol and Oxycodone last night without improvement. He also endorses shortness of breath x2 days. He states this is primarily on movement and believes it may be related to his back pain. He is on 2L O2 at baseline and has not had to increase this. Denies fever, chills. Denies any urinary symptoms, nausea or vomiting. Patient's brother in law is at bedside to assist with history. Patient recently had recent PET scan which showed mets to bone and brain. He had port placed and began first round of chemo 2 weeks ago. They are unsure if he has mets to his spine. Related Data Home Medications ?Medication ?Instructions ?Recorded ?Confirmed albuterol sulfate 2.5 mg/3 mL 2.5 mg inhalation Q4H PRN wheezing 11/19/23 06/10/24 (0.083 %) solution for nebulization albuterol sulfate 90 mcg/actuation 2 puff inhalation Q4H PRN wheezing 11/19/23 06/10/24 aerosol inhaler amlodipine 2.5 mg tablet 2.5 mg PO DAILY 11/19/23 06/10/24 aspirin 81 mg tablet,delayed 81 mg PO DAILY 11/19/23 06/10/24 release (Adult Low Dose Aspirin) atorvastatin 40 mg tablet 40 mg PO QPM 11/19/23 06/10/24 clopidogrel 75 mg tablet 75 mg PO DAILY 11/19/23 06/10/24 hydroxyzine HCl 25 mg tablet 25 mg PO TID PRN anxiety 11/19/23 06/10/24 metoprolol succinate 25 mg 25 mg PO DAILY 11/19/23 06/10/24 tablet,extended release 24 hr sertraline 50 mg tablet 50 mg PO DAILY 11/19/23 06/10/24 Previous Rx's ?Medication ?Instructions ?Recorded ipratropium 0.5 mg-albuterol 3 mg 3 ml inhalation BID PRN wheezing 11/21/23 (2.5 mg base)/3 mL nebulization #180 mL soln fluticasone fur. 200 mcg-umeclid 1 inh inhalation DAILY #60 ea 05/06/24 62.5 mcg-vilant 25 mcg inhalat.powder (Trelegy Ellipta) prednisone 10 mg tablet 10 mg PO DIRECTED #30 tabs 05/06/24 folic acid 1 mg tablet 1 mg PO DAILY #30 tabs 05/14/24 dexamethasone 4 mg tablet 4 mg PO TID #60 tabs 05/28/24 tramadol 50 mg tablet 50 mg PO Q8H PRN Pain (Scale Score 06/10/24 7-10) #30 tabs oxycodone 5 mg tablet,oral ONLY 5 mg PO Q8H PRN Severe Pain (Scale 06/12/24 (not feeding tubes) Score 7-10) #30 ea hydromorphone 2 mg tablet 2 mg PO Q6H PRN pain (scale score 06/17/24 (Dilaudid) 7-10) #12 tabs Allergies Allergy/AdvReac Type Severity Reaction Status Date / Time No Known Allergies Allergy Verified 06/17/24 09:23 Review of Systems 2 Review of Systems: Yes all other systems are reviewed and are negative PMFSH Past Medical History Attestation statement: The following information was validated with the patient. Source: old records reviewed and nursing notes reviewed Medical History Claustrophobia Elevated cholesterol Arthritis Back pain Numbness Anxiety Obesity CAD (coronary artery disease) Hypertension Personal history of nicotine dependence COPD (chronic obstructive pulmonary disease) Surgical History History of carpal tunnel release (~01/2024) History of heart artery stent History of umbilical hernia repair Social History Social History Household Members: None Are you a primary primary care physician to a significant other at home: No Do you presently have visiting nurse or other home services: No Patient Tobacco Use Status: Former Tobacco user Tobacco use type: Cigarette Advance Directives: No Advance Directives Information Provided: No service: No Current occupational status: retired Sexual orientation: Straight/Heterosexual Gender identity: Male Physical Exam 2 Vital Signs: Vital Signs: Last Vital Signs Temp 98.7 F 06/17/24 15:43 Pulse 67 06/17/24 15:43 Resp 16 06/17/24 15:43 BP 122/69 06/17/24 15:43 Pulse Ox 96 06/17/24 15:43 O2 Del Method Room Air 06/17/24 15:43 O2 Flow Rate 2 06/17/24 10:46 Oxygen Flow Rate 2 06/17/24 09:17 BMI result Body Mass Index 38.4 tachypneic, afebrile General: Well appearing, in no acute distress. Skin: Warm, dry, intact. No rashes or lesions. Head: Normocephalic, atraumatic. EENT: Hearing is intact b/l. Conjunctiva clear. PERRLA. EOM intact. Moist mucous membranes.? Neck: Supple without LAD Cardiac: Chest wall symmetric. RRR Lungs: Normal respiratory effort without accessory muscle use. no tripoding or increased effort of breathing. minimal scattered wheezes. Abdomen: Soft, non-tender, non-distended. No rebound tenderness or guarding Back: +midline lumbar spinous tenderness w/o step off. b/l lumbar paraspinal muscle tenderness. Ext: Upper and lower extremities atraumatic, without tenderness, deformity, swelling or erythema. Full ROM throughout. Neuro: AOx3. Normal speech. Strength 5/5 intact throughout. No saddle anesthesia. Sensation intact to light touch. NV intact distally. Ambulating with steady gait. Course Course Course Narrative: This is a Rapid Medical Examination (RME) performed by Lavern Yousif PA-C in triage. Full HPI, ROS, assessment and treatment plan per primary provider in the Main ED. 73 yo male hx of stage 4 lung cancer currently on chemo (last chemo 1 wk ago), COPD on 2L O2 at baseline here for worsening sob, cough, mid back pain x2 days. +no respiratory distress 0929 -- supervisor phosphorus processing aware pt is on chemo - should be brought back to ED bed w/ reverse precautions. patient provided mask while in waiting room Plan: labs, cxr, ekg, further eval in back Reevaluation(s) Reevaluation #1: I have reviewed oncology notes from Dr. Clayton > 05/18/24 -- patient had repeat PET scan at [facility] which revealed a 2.8 x 3.1 cm spiculated right upper lobe lung mass with SUV 10.1 multiple mediastinal and right hilar lymph nodes, puree and paratracheal lymph nodes, bilateral axillary lymph nodes. It also revealed new osseous lesions in the right femoral diaphysis, right iliac bone, lumbar spine and right ribs. > 05/24/24 -- brain MRI reveals nodules to right frontal and left parietal lobes with assoc vasogenic edema. patient was started on dexamethasone 4mg, taking this only for 2 days following chemo > 05/29/24-- port placed and patient was started on carboplatin, pemetrexed, and pembrolizumab > 06/10/24 -- patient received his first injection of denosumab 2 weeks ago. he was reporting pain to right lower rib area and low back, making it difficult for him to sleep at night. 1122 -- CBC without leukocytosis or left shift. Normocytic anemia, chronic when compared to priors. H&H around baseline and above transfusion threshold. Thrombocytopenia at 57. Chemistry without acute electrolyte abnormality requiring intervention. BUN slightly elevated to 22 with normal creatinine. Initial troponin elevated to 38.8. Will repeat for delta. BNP 107. Viral swabs negative. Chest x-ray showing new left-sided Port-A-Cath placed in right atrium, no evidence of pneumothorax. Ill-defined opacity in the periphery of the right upper hemithorax, consistent with current lung cancer. interstitial lung disease pattern. > CTA chest pending to r/o PE. vbg, lactic, blood cultures pending. i do not have concern for sepsis at this time. > patient receiving Dilaudid for pain control > ED bronch protocol and Solu-Medrol given for shortness of breath. he does not meet criteria for copd exacerbation - antibiotics are not warranted at this time. 1231 -- I spoke with oncologist, Dr. Clayton, regarding management. she agrees wit CTA chest to r/o clot. recommends adding CT lumbar spine d/t acute on chronic pain with osseous met lesions. 1330 -- repeat trop 37.7. No concern for NSTEMI. lactic wnl. vbg showing metabolic alkalosis. with bicarb of 32. UA w/o infection. imaging pending. 1456 -- CTA chest does not demonstrate acute PE. it does show CT lumbar spine shows lytic metastatic lesions in L3 with a minimal inferior endplate compression deformity, likely acute with approximately 10% loss of height. No retropulsion of bone. Subtle lytic lesion suspected at T11 without any additional fractures. Severe degenerative disc disease at L5/S1 and degenerative facet disease at L4/S1. > I discussed all work up results with patient. on re-evaluation, he states he feels much better after receiving dilaudid and would like to be discharged home. > I discussed findings with my attending dr. ware and oncologist dr. clayton. plan to send sb home with 3 days script of PO dilaudid. advised to discontinue oxycodone and to not mix this with dilaudid. advised outpatient follow up with PCP and heme/onc outpatient. I have provided him with a referral to neurospine. Patient has remained stable throughout ED visit today. Discussed worrisome signs and symptoms and when to return to the ED. All questions answered at this time. Patient is agreeable with disposition and stable for discharge. Medications Administered Discontinued Medications Generic Name Dose Route Start Last Admin Trade Name Freq PRN Reason Stop Dose Admin Albuterol Sulfate 5 mg/ 0 mg 06/17/24 11:10 06/17/24 11:16 Albuterol/Ipratropium 3 ml INHALE 06/17/24 11:11 7.5 each ONCE ONE Administration Hydromorphone HCl 1 mg 06/17/24 11:29 06/17/24 13:49 Hydromorphone Hcl 1 Mg/Ml Syringe IVPUSH 06/17/24 11:30 1 mg ONCE ONE Administration Protocol Iohexol 65 ml 06/17/24 13:30 06/17/24 13:30 Iohexol 350 Mg/Ml 100 Ml Infus..Btl IV 06/17/24 13:31 65 ml ONCE ONE Administration Methylprednisolone Sodium Succinate 125 mg 06/17/24 10:53 06/17/24 13:49 Methylprednisolone Sod Succ 125 Mg/2 Ml Vial IVPUSH 06/17/24 10:54 125 mg ONCE ONE Administration Naloxone HCl 8 mg 06/17/24 15:14 06/17/24 15:42 Naloxone Hcl Nasal Take Home 4 Mg [place] NOSTRILALT 06/17/24 15:15 8 mg ONCE ONE Administration Medical Decision Making Medical Decision Making [facility] Narrative: 73 year old male, former smoker with 50+ pack year history, quit 2018, with underlying COPD on 2L O2, HTN, GA s/p 2 stents on plavix, and CAD presents to the ED today for evaluation of right sided lower back pain since yesterday. vital signs stable. he is satting 96-97% on 2L which is his baseline. there is no increased effort of breathing. no tripoding. lungs w/ minmal scattered wheezes. midline lumbar spinous tenderness w/o step off. b/l lumbar paraspinal muscle tenderness. cms intact distally. Differential diagnosis includes anemia, electrolyte abnormality, pneumothorax, pneumonitis, pneumonia, viral syndrome, bronchitis, CHF, ACS, arrhythmia, PE Plan for labs, ekg, cxr, CTA chest, breathing treatment, pain control, serial re-evaluation. Differential Diagnosis Differential Diagnoses: The differential diagnosis associated with the presentation includes as above. Admission/Observation Consideration of admission/observation: Escalation of care including admission/observation considered admission considered on presentation. Consult Healthcare Provider Management of the patient was discussed with: Senior Lead Java Developer Oncologist - Dr. Clayton Lab Data [facility] Lab Attestation statement: I reviewed the patient's lab results. as above. 06/17/24 09:41 06/17/24 09:41 Labs: Lab Results 06/17/24 06/17/24 06/17/24 Range/Units 09:41 11:50 12:00 WBC 8.0 (4.8-10.8) X10*3/uL RBC 3.79 L (4.60-5.80) X10*6/uL Hgb 12.2 L (14.0-18.0) g/dl Hct 35.2 L (42.0-52.0) % MCV 92.9 (80.0-98.0) fL MCH 32.2 (27.0-33.0) pg MCHC 34.7 (31.0-36.0) g/dl RDW 17.1 H (11.0-16.0) % Plt Count 57 L D (160-400) X10*3/uL MPV 10.1 (9.4-12.4) fL Immature Gran % (Auto) 0.3 (0.0-0.4) % Neut % (Auto) 68.7 (45-73) % Lymph % (Auto) 24.4 (20-40) % [place] % (Auto) 5.9 (2-11) % Eos % (Auto) 0.6 (0-4) % Baso % (Auto) 0.1 (0-2) % Lymph # (Auto) 2.0 (1.2-4.9) X10*3/uL [place] # (Auto) 0.5 (0.1-1.2) X10*3/uL Eos # (Auto) 0.1 (0.0-0.4) X10*3/uL Baso # (Auto) 0.0 (0.0-0.2) X10*3/uL Abs Immat Gran (auto) 0.02 (0.00-0.03) X10*3/uL Absolute Neuts (auto) 5.5 (2.0-8.3) x10*3/uL Absolute Nucleated RBC 0.000 (0.0-0.012) X10*3/uL Nucleated RBC % (auto) 0.0 (0.0-0.2) /100WBC VBG pH (7.32-7.43) VBG pCO2 mmHg VBG pO2 mmHg VBG HCO3 (22-26) mmol/L VBG O2 Saturation % VBG Base Excess mmol/L Sodium 140 (135-145) mmol/L Potassium 4.2 (3.3-5.1) mmol/L Chloride 108 (96-108) mmol/L Carbon Dioxide 25 (22-29) mmol/L Anion Gap 11 L (12-20) BUN 22 H (9-16) mg/dL Creatinine 0.70 (0.5-1.4) mg/dL Estim Creat Clear Calc 126.3 Estimated GFR > 60 Random Glucose 81 (60-115) mg/dL Lactic Acid 1.2 (0.5-2.0) mmol/L Calcium 8.3 L D (8.4-10.2) mg/dL Magnesium 2.3 (1.6-2.6) mg/dL Total Bilirubin 1.0 (0.0-1.0) mg/dL AST 24 (5-37) U/L ALT 44 H (0-40) U/L Alkaline Phosphatase 75 (39-117) U/L Troponin I High Sens 38.8 H (<3.5-35.0) ng/L B-Natriuretic Peptide 107 H (<100) pg/mL Total Protein 6.1 L (6.5-8.0) g/dL Albumin 3.3 L (3.5-5.0) g/dL Urine Color Yellow Urine Appearance Clear Urine pH 7.5 (5.0-9.0) Ur Specific Reeder 1.025 (1.005-1.025) Urine Protein Negative (Neg-Trace) mg/dL Urine Glucose (UA) Negative (Negative) mg/dL Urine Ketones Negative (Negative) mg/dL Urine Blood Trace H (Negative) Urine Nitrite Negative (Negative) Ur Leukocyte Esterase Negative (Negative) Urine RBC 6-10 H (0-2) /HPF Urine WBC 0-5 (0-5) /HPF Ur Squamous Epith Cells 0-2 (0-2) /HPF Urine Bacteria None Seen (None Seen) Hyaline Casts 0-2 (0-2) /LPF Influenza Type A (PCR) NEGATIVE (Negative) Influenza Type B (PCR) NEGATIVE (Negative) RSV RNA Qual (PCR) NEGATIVE (Negative) SARS-CoV-2 RNA (RT-PCR) NEGATIVE (Negative) 06/17/24 06/17/24 Range/Units 12:07 12:31 WBC (4.8-10.8) X10*3/uL RBC (4.60-5.80) X10*6/uL Hgb (14.0-18.0) g/dl Hct (42.0-52.0) % MCV (80.0-98.0) fL MCH (27.0-33.0) pg MCHC (31.0-36.0) g/dl RDW (11.0-16.0) % Plt Count (160-400) X10*3/uL MPV (9.4-12.4) fL Immature Gran % (Auto) (0.0-0.4) % Neut % (Auto) (45-73) % Lymph % (Auto) (20-40) % [place] % (Auto) (2-11) % Eos % (Auto) (0-4) % Baso % (Auto) (0-2) % Lymph # (Auto) (1.2-4.9) X10*3/uL [place] # (Auto) (0.1-1.2) X10*3/uL Eos # (Auto) (0.0-0.4) X10*3/uL Baso # (Auto) (0.0-0.2) X10*3/uL Abs Immat Gran (auto) (0.00-0.03) X10*3/uL Absolute Neuts (auto) (2.0-8.3) x10*3/uL Absolute Nucleated RBC (0.0-0.012) X10*3/uL Nucleated RBC % (auto) (0.0-0.2) /100WBC VBG pH 7.43 (7.32-7.43) VBG pCO2 48 mmHg VBG pO2 37 mmHg VBG HCO3 32 H (22-26) mmol/L VBG O2 Saturation 58.0 % VBG Base Excess 7.3 mmol/L Sodium (135-145) mmol/L Potassium (3.3-5.1) mmol/L Chloride (96-108) mmol/L Carbon Dioxide (22-29) mmol/L Anion Gap (12-20) BUN (9-16) mg/dL Creatinine (0.5-1.4) mg/dL Estim Creat Clear Calc Estimated GFR Random Glucose (60-115) mg/dL Lactic Acid (0.5-2.0) mmol/L Calcium (8.4-10.2) mg/dL Magnesium (1.6-2.6) mg/dL Total Bilirubin (0.0-1.0) mg/dL AST (5-37) U/L ALT (0-40) U/L Alkaline Phosphatase (39-117) U/L Troponin I High Sens 37.7 H (<3.5-35.0) ng/L B-Natriuretic Peptide (<100) pg/mL Total Protein (6.5-8.0) g/dL Albumin (3.5-5.0) g/dL Urine Color Urine Appearance Urine pH (5.0-9.0) Ur Specific Reeder (1.005-1.025) Urine Protein (Neg-Trace) mg/dL Urine Glucose (UA) (Negative) mg/dL Urine Ketones (Negative) mg/dL Urine Blood (Negative) Urine Nitrite (Negative) Ur Leukocyte Esterase (Negative) Urine RBC (0-2) /HPF Urine WBC (0-5) /HPF Ur Squamous Epith Cells (0-2) /HPF Urine Bacteria (None Seen) Hyaline Casts (0-2) /LPF Influenza Type A (PCR) (Negative) Influenza Type B (PCR) (Negative) RSV RNA Qual (PCR) (Negative) SARS-CoV-2 RNA (RT-PCR) (Negative) Independent Interpretation I performed an independent interpretation of an: EKG, Plain X-Ray and CT Scan Interpretation: EKG showing normal sinus rhythm with a rate of 64 beats per minute, QT 418, QTC 431, no acute ischemic changes or ST elevations Chest x-ray without focal consolidation or infiltrate CTA chest w/o clot CT lumbar spine w/ small compression deformity to L3 Radiology Impression Discussion of test interpretation with radiology: I have reviewed the radiologist's reading. Radiologist Impression: Procedure(s): XR chest 2V Accession Number(s): [id number] cc: Flo Burgess III, MD; Ludy Yousif~ EXAMINATION: XR CHEST CLINICAL INFORMATION: sob, xurrent lung ca COMPARISON: May 04, 2024 TECHNIQUE: 2 views of the chest were obtained. FINDINGS: Ill-defined opacity in the periphery of the right upper hemithorax. Pulmonary reticular pattern. Left-sided Port-A-Cath has been inserted the left internal jugular vein and ends in the right atrium region. No pneumothorax. No pleural effusion. Cardiomediastinal silhouette size is normal with calcified plaque in the aortic arch. Multilevel thoracic spondylosis. Degenerative changes in the right shoulder. XR/XR chest 2V IMPRESSION: New left-sided Port-A-Cath placed ending at the right atrium without pneumothorax. Stable appearance of the lungs. Electronically signed by: Navid Main MD 06/17/2024 10:25 AM [facility] [place]s): CT lumbar spine wo IV con Accession Number(s): [id number] cc: Flo Burgess III, MD; Ludy Yousif~ Report Number: [id number]: Total DLP = 802.00 mGy-cm EXAMINATION: CT LUMBAR SPINE WITHOUT CONTRAST CLINICAL INFORMATION: Acute on chronic back pain, metastatic lesions. COMPARISON: None available. Correlation made with PET CT 05/21/2024. TECHNIQUE: Spiral CT imaging of the lumbar spine was performed in axial plane without contrast. Sagittal, coronal, and thin section axial reformatted images were constructed from the axial data set. This CT examination was performed using dose optimization techniques as appropriate, variously including the following: *Automated exposure control *Adjustment of mA and/or kV according to patient size (this includes techniques or standardized protocols for targeted exams where dose is matched to indication/reason for exam; i.e. extremities or head) *Use of iterative reconstruction technique FINDINGS: No scoliosis. Normal lordosis. Normal alignment without subluxation. There are lytic lesions with abutting sclerosis throughout the L3 vertebral body, the largest ventrally to the right of midline measuring 2.2 cm in diameter. (There is 9, image 73). There is mild inferior endplate concavity suggesting subtle pathologic compression fracture, 10% loss of height. No retropulsion of bone. There are tiny lytic foci in the endplates of T11, appearance suggesting a mix of metastatic lesions and Schmorl's nodes. No additional fractures or additional suspicious bone lesions. Normal facet alignment. Degenerative facet changes L4-S1. Mild degenerative disc changes throughout, with severe disc degeneration L5-S1. No evidence of high-grade central canal stenosis allowing for limitations of modality. The paravertebral and paraspinous soft tissues demonstrate no abnormalities. Mild ectasia and heavy calcification of the aorta. CT/CT lumbar spine wo IV con IMPRESSION: 1. Lytic metastatic lesions in L3, with a minimal inferior endplate compression deformity, likely acute. Approximately 10% loss of height. No retropulsion of bone. 2. Subtle lytic lesion suspected in T11. No additional fractures seen. 3. Severe degenerative disc disease L5-S1. 4. Degenerative facet disease L4-S1. Electronically signed by: Brody Waddell MD 06/17/2024 02:23 PM [facility] [place] Procedure(s): CT angio chest PE protocol Accession Number(s): [id number] cc: Flo Burgess III, MD; Ludy Yousif~ Report Number: [id number]: Total DLP = 396.00 mGy-cm EXAMINATION: CT ANGIOGRAM CHEST CLINICAL INFORMATION: Cancer patient. Shortness of breath. COMPARISON: CT dated May 21, 2024. TECHNIQUE: Multiple axial images were obtained through the chest after the administration of 80 mL of Omnipaque 350 intravenous contrast. Extensive vascular post-processing including two-dimensional and three-dimensional reformatted images were created and reviewed on an independent workstation. SmartPrep technique. This CT examination was performed using dose optimization techniques as appropriate, variously including the following: *Automated exposure control *Adjustment of mA and/or kV according to patient size (this includes techniques or standardized protocols for targeted exams where dose is matched to indication/reason for exam; i.e. extremities or head) *Use of iterative reconstruction technique DLP: 396 mGy centimeter. FINDINGS: No intraluminal filling defects within the main pulmonary artery or its main branches. 4 cm spiculated attenuation ill-defined heterogeneous mixed density lesion in the right upper lobe likely apical segment abutting the pleura. Subtle patchy pulmonary groundglass bilaterally. Mosaic pattern. Centrilobular emphysematous changes involving mostly the upper lobes. Pleura thickening, bilaterally. Mediastinal and right perihilar lymphadenopathy. Multilevel spondylosis in the axial skeleton without acute fracture or listhesis. There is soft tissue fullness in the intrathoracic extra pleura/pleural compartment and of the posterior lateral aspect of the left seventh and eighth ribs without osteolysis. Calcified plaques in the coronary arteries and thoracic aorta. There is central venous catheter ending in the right atrium. 1 cm hypodensity in the left hepatic lobe. Atrophic spleen measuring [address]/CT angio chest PE protocol IMPRESSION: No acute pulmonary artery emboli. No thoracic aortic aneurysm or dissection. Stable malignancy right lung with associated the mediastinal and right perihilar lymphadenopathy. Questionable new metastatic lesion in the lateral compartment left seventh eighth ribs.. Fleischner guidelines were followed. Electronically signed by: Navid Main MD 06/17/2024 02:28 PM [facility] Independent Historian Clinical information obtained from an independent historian. History obtained from or confirmed by: Other (brother in law ) External Record Review External record reviewed: Inpatient record, Office record and Outpatient record Prescription Management I considered prescription management with: Pain Medication Chronic Conditions Patient?s care impacted by: Cancer (lung cancer) and Other (copd) Social Determinants Patient?s care significantly limited by Social Determinants of Health including: Other Social Determinant of Health Critical Care Time Critical Care Time Critical Care Time: Yes Total Critical Care Time: 37 Attestation: Critical care time in the amount of 37 minutes has been provided to the patient in terms of direct patient care, frequent reevaluation, consultation with heme/onc, review and interpretation of medical data and results, and management of potentially life-threatening conditions. This is all outside of any medical procedures. Discharge Plan Discharge Clinical Impression: Closed compression fracture of lumbar vertebra, Lung cancer metastatic to bone, COPD (chronic obstructive pulmonary disease) Patient Disposition: Home, Self-Care Instructions: Kyphoplasty (DC) Additional Instructions: Your blood work today is reassuring. You tested negative for covid, flu, rsv. Your chest xray does not demonstrate pneumonia. The CT scan of your chest does not demonstrate any clot in your lungs. The CT scan of your lumbar spine shows a new compression fracture at L3, consistent with your pain. You were treated with a strong pain medication in ED today with improvement. This pain medication is called dilaudid. I am sending you home with this medication for severe pain. Please use this with caution as opioid pain medications have addictive properties. I have also provided you with Narcan as accidental overdoses on dilaudid can occur. Opioid pain medications can often cause constipation. As discussed, do not continue to take Oxycodone while taking Dilaudid. I recommend taking this with an over the counter laxative and/or stool softener to help move your bowels. Follow up with your outpatient providers including PCP and water use inspector/ oncologist. I have provided you with a referral to neurospine to follow up regarding compression fracture. Please return to the ED with any new or worsening symptoms. In the of an emergency call 911. Prescriptions: New hydromorphone [Dilaudid] 2 mg tablet 2 mg PO Q6H PRN (Reason: pain (scale score 7-10)) Qty: 12 0RF Rx Instructions: Partial Fill upon patient request. No Action ipratropium-albuterol 0.5 mg-3 mg(2.5 mg base)/3 mL solution for nebulization 3 ml inhalation BID PRN (Reason: wheezing) Qty: 180 3RF folic acid 1 mg Tablet 1 mg PO DAILY Qty: 30 3RF tramadol 50 mg Tablet 50 mg PO Q8H PRN (Reason: Pain (Scale Score 7-10)) Qty: 30 0RF oxycodone 5 mg Tablet, Oral Only 5 mg PO Q8H PRN (Reason: Severe Pain (Scale Score 7-10)) Qty: 30 0RF Rx Instructions: Partial Fill upon patient request. dexamethasone 4 mg Tablet 4 mg PO TID Qty: 60 2RF albuterol sulfate 90 mcg/actuation HFA aerosol inhaler 2 puff inhalation Q4H PRN (Reason: wheezing) sertraline 50 mg tablet 50 mg PO DAILY metoprolol succinate 25 mg tablet extended release 24 hr 25 mg PO DAILY albuterol sulfate 2.5 mg /3 mL (0.083 %) solution for nebulization 2.5 mg inhalation Q4H PRN (Reason: wheezing) clopidogrel 75 mg tablet 75 mg PO DAILY hydroxyzine HCl 25 mg tablet 25 mg PO TID PRN (Reason: anxiety) amlodipine 2.5 mg tablet 2.5 mg PO DAILY atorvastatin 40 mg tablet 40 mg PO QPM aspirin [Adult Low Dose Aspirin] 81 mg tablet,delayed release (DR/EC) 81 mg PO DAILY Trelegy Ellipta 200-62.5-25 mcg blister with device 1 inh inhalation DAILY Qty: 60 3RF prednisone 10 mg tablet 10 mg PO DIRECTED Qty: 30 0RF Rx Instructions: see taper instructions; 40 mg Daily x3 days, 30 mg daily x3 days, 20 mg daily x3 days, 10 mg daily x3 days Referrals: Flo Burgess III, MD [Primary Care Provider] - Chi Mckinney MD, PhD [Physician] - 5 days (L3 compression fracture, metastatic bone cancer) Interventions: ED Discharge Assessment Last Done: 06/17/24 15:43 Discharge Date/Time: 06/17/24 15:43 Print Language: Austrian
[2024-06-17 10:05] LABS: MANUAL DIFF FLAG NO
[2024-06-17 10:07] LABS: Basophils Percent Auto 0.1 % (0-2); Eosinophils Absolute Auto 0.1 X10*3/uL (0.0-0.4); Eosinophils Percent Auto 0.6 % (0-4); Hematocrit 35.2 % (42.0-52.0); Hemoglobin 12.2 g/dl (14.0-18.0); Imm Gran Abs Auto 0.02 X10*3/uL (0.00-0.03); Imm Gran Pct Auto 0.3 % (0.0-0.4); Lymphocytes Percent Auto 24.4 % (20-40); Mean Corpuscular HGB Conc 34.7 g/dl (31.0-36.0); Mean Corpuscular Hemoglobin 32.2 pg (27.0-33.0); Mean Corpuscular Volume 92.9 fL (80.0-98.0); Monocytes Absolute Auto 0.5 X10*3/uL (0.1-1.2); Monocytes Percent Auto 5.9 % (2-11); Neutrophils Absolute Auto 5.5 x10*3/uL (2.0-8.3); Neutrophils Percent Auto 68.7 % (45-73); Red Blood Count 3.79 X10*6/uL (4.60-5.80); Red Cell Distribution Width 17.1 % (11.0-16.0)
[2024-06-17 10:26] LABS: Alanine Aminotransferase 44 U/L (0-40); Albumin Level 3.3 g/dL (3.5-5.0); Alkaline Phosphatase 75 U/L (39-117); Anion Gap 11 (12-20); Aspartate Amino Transferase 24 U/L (5-37); Blood Urea Nitrogen 22 mg/dL (9-16); Calcium 8.3 mg/dL (8.4-10.2); Carbon Dioxide 25 mmol/L (22-29); Chloride 108 mmol/L (96-108); Creatinine Clr Calc Pharmacy 126.3; Estimated Glomerular Filt Rate > 60; Glucose Random 81 mg/dL (60-115); Magnesium 2.3 mg/dL (1.6-2.6); Potassium 4.2 mmol/L (3.3-5.1); Sodium 140 mmol/L (135-145); Total Protein 6.1 g/dL (6.5-8.0)
[2024-06-17 10:27] LABS: B Type Natriuretic Peptide 107 pg/mL (<100); Troponin-I High Sensitivity 38.8 ng/L (<3.5-35.0)
[2024-06-17 10:40] LABS: Mean Platelet Volume 10.1 fL (9.4-12.4)
[2024-06-17 10:42] LABS: Platelet Count 57 X10*3/uL (160-400)
[2024-06-17 10:46] VITALS: BP 114/65; PULSE 60; RESP 16; TEMP 36.7; O2SAT 96
[2024-06-17 10:46] LABS: Influenza A PCR NEGATIVE (Negative); Influenza B PCR NEGATIVE (Negative); Resp Syncy Virus RNA Qual PCR NEGATIVE (Negative); SARS COV2 PCR INHOUSE NEGATIVE (Negative)
[2024-06-17 11:10] VITALS: PULSE 69; RESP 24; O2SAT 98
[2024-06-17] MEDS: Albuterol Sulfate 5 MG, Albuterol/Iprat 2.5/0.5MG 3 ML 3 ML INHALE (11:16)
[2024-06-17 12:09] LABS: Appearance Urine Clear; Color Urine Yellow; Glucose Urine UA Negative (Negative); Leukocyte Esterase Urine Negative (Negative); Nitrite Urine Negative (Negative); PH 7.5 (5.0-9.0); Specific Gravity - Urine 1.025 (1.005-1.025); UMIC TRIGGER UACC YES; Urine Blood Trace (Negative); Urine Ketones Negative (Negative); Urine Protein Negative (Neg-Trace)
[2024-06-17 12:10] LABS: VBG Base Excess 7.3 mmol/L; VBG HCO3 32 mmol/L (22-26); VBG pCO2 48 mmHg; VBG pH 7.43 (7.32-7.43); VBG pO2 37 mmHg
[2024-06-17 12:12] LABS: Bacteria Urine None Seen (None Seen); Hyaline Casts Urine 0-2 /LPF (0-2); Squamous Epithelial Cell Urine 0-2 /HPF (0-2); WBC Urine 0-5 /HPF (0-5)
[2024-06-17 12:12] LABS: Venous Blood Gas Refer to POC result
[2024-06-17 12:24] LABS: Lactic Acid 1.2 mmol/L (0.5-2.0)
[2024-06-17 12:59] LABS: Troponin-I High Sensitivity 37.7 ng/L (<3.5-35.0)
[2024-06-17] MEDS: iohexoL 350 MG/ML 100 ML INFUS..BTL 65 ML IV (13:30)
[2024-06-17] MEDS: HYDROmorphone HCl 1 MG/ML SYRINGE IVPUSH (13:49)
[2024-06-17] MEDS: methylPREDNISolone Sod Succ 125 MG/2 ML VIAL IVPUSH (13:49)
[2024-06-17 15:40] VITALS: BP 122/69; PULSE 67; RESP 16; TEMP 37.1; O2SAT 96
[2024-06-17] MEDS: Naloxone HCl Nasal TAKE HOME 4 MG SPRAY 8 MG NOSTRILALT (15:42)
[2024-06-17 15:43] VITALS: BP 122/69; PULSE 67; RESP 16; TEMP 37.1; O2SAT 96
== END 2024-06-17 15:43 | disposition home or self-care (01) ==
PROVIDERS: Physician Assistant Medical; Emergency Provider Emergency Medicine; PCP Internal Medicine
DX: M84.58XA Pathological fracture in neoplastic disease, other specified site, initial encounter for fracture (principal); C34.90 Malignant neoplasm of unspecified part of unspecified bronchus or lung; C79.51 Secondary malignant neoplasm of bone; R06.02 Shortness of breath; Z03.818 Encounter for observation for suspected exposure to other biological agents ruled out; I10 Essential (primary) hypertension; E78.00 Pure hypercholesterolemia, unspecified; J44.9 Chronic obstructive pulmonary disease, unspecified; Z99.81 Dependence on supplemental oxygen
CPT/HCPCS: 0241U; 36415; 71046; 71275; 72131; 80053; 81001; 82803; 83605; 83735; 83880; 84484; 85025; 87040; 93005; 94640; 96374; 96375; 99284; J1171; J2919; Q9967

== ENCOUNTER → 2024-06-17 09:23 | Outpatient (BNV) | payer MEDICARE, MEDICAID, SELFPAY | PROVIDERS: Emergency Provider Emergency Medicine; PCP Internal Medicine; Visit Provider Internal Medicine | DX: I25.2 Old myocardial infarction (principal) | CPT/HCPCS: 93010 ==

== ENCOUNTER → 2024-06-17 09:23 | Outpatient (BNV) | payer MEDICARE, MEDICAID, SELFPAY | PROVIDERS: Emergency Provider Emergency Medicine; PCP Internal Medicine; Visit Provider Radiology Diagnostic Radiology | DX: C34.91 Malignant neoplasm of unspecified part of right bronchus or lung (principal); C79.51 Secondary malignant neoplasm of bone; S32.030A Wedge compression fracture of third lumbar vertebra, initial encounter for closed fracture; M51.369 Other intervertebral disc degeneration, lumbar region without mention of lumbar back pain or lower extremity pain | CPT/HCPCS: 71046; 71275; 72131 ==

== ENCOUNTER 2024-07-01 09:52 | Outpatient (AMB) | payer MEDICARE, MEDICAID, SELFPAY ==
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
[2024-07-01 09:54] VITALS: BP 130/70; PULSE 78; O2SAT 97; BMI 36.9
== END 2024-07-01 10:28 | disposition home or self-care (01) ==
PROVIDERS: PCP Internal Medicine; Visit Provider Nurse Practitioner Family
DX: J44.9 Chronic obstructive pulmonary disease, unspecified (principal); C34.90 Malignant neoplasm of unspecified part of unspecified bronchus or lung; Z99.81 Dependence on supplemental oxygen
CPT/HCPCS: 99214

== ENCOUNTER → 2024-07-01 09:52 | Outpatient (BNVA) | payer MEDICARE, MEDICAID, SELFPAY | PROVIDERS: PCP Internal Medicine; Visit Provider Nurse Practitioner Family | DX: J44.9 Chronic obstructive pulmonary disease, unspecified (principal); C34.90 Malignant neoplasm of unspecified part of unspecified bronchus or lung; Z99.81 Dependence on supplemental oxygen; Z87.891 Personal history of nicotine dependence | CPT/HCPCS: 99212 ==

== ENCOUNTER 2024-07-30 09:59 | Outpatient (REF) | payer MEDICARE, MEDICAID, SELFPAY ==
[2024-07-30 10:17] LABS: MANUAL DIFF FLAG NO
[2024-07-30 10:22] LABS: Basophils Percent Auto 0.2 % (0-2); Eosinophils Percent Auto 0.4 % (0-4); Hematocrit 29.2 % (42.0-52.0); Imm Gran Abs Auto 0.03 X10*3/uL (0.00-0.03); Imm Gran Pct Auto 0.6 % (0.0-0.4); Lymphocytes Absolute Auto 1.6 X10*3/uL (1.2-4.9); Lymphocytes Percent Auto 29.9 % (20-40); Mean Corpuscular HGB Conc 34.2 g/dl (31.0-36.0); Mean Corpuscular Hemoglobin 32.9 pg (27.0-33.0); Mean Corpuscular Volume 96.1 fL (80.0-98.0); Monocytes Percent Auto 19.5 % (2-11); Neutrophils Absolute Auto 2.6 x10*3/uL (2.0-8.3); Neutrophils Percent Auto 49.4 % (45-73); Red Blood Count 3.04 X10*6/uL (4.60-5.80); Red Cell Distribution Width 19.8 % (11.0-16.0); White Blood Count 5.2 X10*3/uL (4.8-10.8)
[2024-07-30 10:36] LABS: Alanine Aminotransferase 38 U/L (0-40); Albumin Level 3.6 g/dL (3.5-5.0); Alkaline Phosphatase 101 U/L (39-117); Anion Gap 10 (12-20); Aspartate Amino Transferase 24 U/L (5-37); Bilirubin Total 0.4 mg/dL (0.0-1.0); Blood Urea Nitrogen 19 mg/dL (9-16); Calcium 9.3 mg/dL (8.4-10.2); Carbon Dioxide 27 mmol/L (22-29); Chloride 109 mmol/L (96-108); Estimated Glomerular Filt Rate > 60; Glucose Random 105 mg/dL (60-115); Magnesium 1.7 mg/dL (1.6-2.6); Potassium 4.1 mmol/L (3.3-5.1); Sodium 142 mmol/L (135-145); Total Protein 6.6 g/dL (6.5-8.0)
[2024-07-30 10:47] LABS: Platelet Count 25 X10*3/uL (160-400)
[2024-07-30 10:48] LABS: Mean Platelet Volume 9.6 fL (9.4-12.4)
== END 2024-07-30 10:00 | disposition home or self-care (01) ==
LOC: HO.LAB 09:59
PROVIDERS: PCP Internal Medicine; Visit Provider Internal Medicine
DX: C34.90 Malignant neoplasm of unspecified part of unspecified bronchus or lung (principal)
CPT/HCPCS: 36415; 80053; 82378; 83735; 85025

== ENCOUNTER 2024-08-07 14:58 | Outpatient (AMB) | payer MEDICARE, MEDICAID, SELFPAY ==
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
[2024-08-07 15:16] VITALS: PULSE 77; O2SAT 94; BMI 37.0
== END 2024-08-07 16:08 | disposition home or self-care (01) ==
LOC: HO.HPSW 14:59
PROVIDERS: PCP Internal Medicine; Visit Provider Nurse Practitioner Family
DX: J44.9 Chronic obstructive pulmonary disease, unspecified (principal); C34.90 Malignant neoplasm of unspecified part of unspecified bronchus or lung; Z99.81 Dependence on supplemental oxygen
CPT/HCPCS: 99214; G2211

== ENCOUNTER → 2024-08-07 14:58 | Outpatient (BNVA) | payer MEDICARE, MEDICAID, SELFPAY | PROVIDERS: PCP Internal Medicine; Visit Provider Nurse Practitioner Family | DX: J44.9 Chronic obstructive pulmonary disease, unspecified (principal); C78.01 Secondary malignant neoplasm of right lung; Z87.891 Personal history of nicotine dependence; Z99.81 Dependence on supplemental oxygen | CPT/HCPCS: 99212 ==

== ENCOUNTER 2024-08-10 15:07 | Emergency (ER) | payer MEDICARE, MEDICAID, SELFPAY ==
--- NOTE | ~2024-08-10 | XR_ITS ---
CLINICAL HISTORY: SOB 2 view chest x-ray Comparison: CR/DE/SR - XR CHEST 2V - 06/17/24 10:13 EST Findings: 4 cm right upper lobe nodule, grossly unchanged. Nodular fullness within the right hilum, grossly unchanged. There may be a mild degree of airspace opacity within the left lower lung. No pleural effusion. There is a focus of pleural thickening within the lateral aspect of the left mid chest. This may be slightly increased. Normal size heart. No acute fracture. There is a left-sided Port-A-Cath within the superior vena cava. There is mild extension of a portion of the catheter into the internal jugular vein, new since the prior study. IMPRESSION: 1. There may be a mild degree of atelectasis or infiltrate within the left lower lung. 2. A 4 cm right upper lobe nodule and soft tissue fullness of the right hilum are grossly unchanged. 3. There is a focus of pleural thickening within the lateral aspect of the left mid chest. This may be slightly increased. 4. There is a left-sided Port-A-Cath within the superior vena cava. There is mild extension of a portion of the catheter into the internal jugular vein, new since the prior study. This document has been electronically signed by: Cindy Abel MD on 08/10/2024 18:26:35
[2024-08-10 15:17] VITALS: BP 121/69; BP 124/82; PULSE 82; PULSE 89; RESP 22; TEMP 36.6; O2SAT 94; BMI 36.5
[2024-08-10 16:00] VITALS: BP 130/69; PULSE 78; RESP 16; TEMP 36.3; O2SAT 94
--- NOTE | 2024-08-10 16:04 | ECG_ITS ---
Test Reason : SOB Blood Pressure : */* mmHG Vent. Rate : 76 BPM Atrial Rate : 76 BPM P-R Int : 152 ms QRS Dur : 100 ms QT Int : 394 ms P-R-T Axes : 55 0 53 degrees QTcB Int : 443 ms Normal sinus rhythm Possible Lateral infarct , age undetermined Inferior-posterior infarct (cited on or before 20-Sep-2013) Abnormal ECG When compared with ECG of 17-Jun-2024 09:38, No significant change was found Referred By: Ashley lCaudio Electronically Signed By: JOHN DUEÑAS MD
--- NOTE | 2024-08-10 16:10 | ED.GENADULT ---
HPI - General Adult General Chief complaint: General Medical Stated complaint: COPD exacerbation, solumedrol and duoneb, epistaxi Time Seen by Provider: 08/10/24 16:09 Source: patient Mode of arrival: EMS Limitations: no limitations History of Present Illness ED Provider: Dr. 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 The patient states that he completed a 10 day course of radiation therapy to his brain and is going to start another course of radiation therapy to his thoracic spine. He states that this morning at 09:00 hours he blew his nose and was bleeding profusely from his left nares. He was able to stop the bleeding but then it recurred again and he called an ambulance and was brought to emergency department. Paramedics noted that the patient was dyspneic, had wheezing and crackles in his lungs and they treated him with Solu-Medrol 125 mg IV and a DuoNeb EN route to the emergency department. Review of systems was negative for fever, chills, rhinorrhea, chest pain, nausea, vomiting, diarrhea. The patient states that he has had increased shortness of breath, dyspnea on exertion and cough above his baseline. Patient does wear 2 L of oxygen via nasal cannula for COPD. Related Data Home Medications ?Medication ?Instructions ?Recorded ?Confirmed albuterol sulfate 2.5 mg/3 mL 2.5 mg inhalation Q4H PRN wheezing 11/19/23 08/07/24 (0.083 %) solution for nebulization albuterol sulfate 90 mcg/actuation 2 puff inhalation Q4H PRN wheezing 11/19/23 08/07/24 aerosol inhaler amlodipine 2.5 mg tablet 2.5 mg PO DAILY 11/19/23 08/07/24 aspirin 81 mg tablet,delayed 81 mg PO DAILY 11/19/23 07/15/24 release (Adult Low Dose Aspirin) atorvastatin 40 mg tablet 40 mg PO QPM 11/19/23 08/07/24 clopidogrel 75 mg tablet 75 mg PO DAILY 11/19/23 07/15/24 hydroxyzine HCl 25 mg tablet 25 mg PO TID PRN anxiety 11/19/23 07/15/24 metoprolol succinate 25 mg 25 mg PO DAILY 11/19/23 08/07/24 tablet,extended release 24 hr sertraline 50 mg tablet 50 mg PO DAILY 11/19/23 08/07/24 dexamethasone 4 mg tablet 4 mg PO DAILY 07/15/24 07/15/24 Previous Rx's ?Medication ?Instructions ?Recorded ipratropium 0.5 mg-albuterol 3 mg 3 ml inhalation BID PRN wheezing 11/21/23 (2.5 mg base)/3 mL nebulization #180 mL soln fluticasone fur. 200 mcg-umeclid 1 inh inhalation DAILY #60 ea 05/06/24 62.5 mcg-vilant 25 mcg inhalat.powder (Trelegy Ellipta) folic acid 1 mg tablet 1 mg PO DAILY #30 tabs 05/14/24 gabapentin 300 mg capsule 300 mg PO TID #90 caps 08/05/24 hydromorphone 2 mg tablet 2 mg PO Q6H severe pain #45 tabs 08/05/24 morphine 60 mg tablet,extended 60 mg PO Q12H #60 tabs 08/05/24 release cephalexin 500 mg capsule 500 mg PO QID 5 days #20 caps 08/10/24 Allergies Allergy/AdvReac Type Severity Reaction Status Date / Time No Known Allergies Allergy Verified 08/10/24 15:19 Review of Systems Review of Systems: Yes all other systems are reviewed and are negative [facility] Past Medical History [facility] Narrative: Social history: He denies tobacco, alcohol and drug use. Medical History Claustrophobia Elevated cholesterol Arthritis Back pain Numbness Anxiety Obesity CAD (coronary artery disease) Hypertension Personal history of nicotine dependence COPD (chronic obstructive pulmonary disease) Surgical History History of carpal tunnel release (~01/2024) History of heart artery stent History of umbilical hernia repair Social History Social History Household Members: None Are you a primary healthcare analyst to a significant other at home: No Do you presently have visiting nurse or other home services: No Patient Tobacco Use Status: Former Tobacco user Tobacco use type: Cigarette Smoked in Last 30 Days: No Use of substances other than those prescribed or required for medical reasons: No Advance Directives: Yes Advance Directives on File: Yes Advance Directives Date on File: 05/05/24 Do you have a plan to hurt others: No Plan service: No Current occupational status: retired Sexual orientation: Straight/Heterosexual Gender identity: Male Physical Exam ED Vital Signs: Vital Signs - 24 hr 08/10/24 15:17 08/10/24 16:00 Temperature 97.8 F 97.3 F Pulse Rate 82 78 Respiratory Rate 22 H 16 Blood Pressure 121/69 130/69 Pulse Oximetry 94 94 Oxygen Delivery Method Room Air Room Air BMI result Body Mass Index 36.5 Vital signs revealed an elevated respiratory rate of 22 otherwise unremarkable. Exam: General: Awake, alert in no distress Head: Normocephalic, atraumatic EENT: PERRL, Lids normal, sclera normal, conjunctiva normal,, throat without erythema or exudates, patient had a large blood clot in his left nares which was removed by him blowing his nose. There is a punctate area on his left anterior septum which appears to be the bleeding source. Neck: Supple, no adenopathy Lung: Breath sounds were symmetric bilaterally, diffuse wheezing with no rales or rhonchi Chest: symmetric movement, nontender Heart: regular rate and rhythm, normal S1, S2 no murmurs or rubs Abdomen: soft, non-tender, nondistended, normal bowel sounds Back: no vertebral tenderness, no CVAT Extremities: no deformities, moves all extremities symmetrically Neuro: Awake, alert, oriented, normal speech, cranial nerves intact, moves all extremities symmetrically Psych: Pleasant, cooperative Medications Administered Discontinued Medications Generic Name Dose Route Start Last Admin Trade Name Freq PRN Reason Stop Dose Admin Cocaine HCl 4 ml 08/10/24 16:34 08/10/24 16:45 Cocaine Hcl 4 % 4 Ml Solution TOPICAL 08/10/24 16:35 4 ml ONCE ONE Administration Protocol Silver Nitrate 6 appl 08/10/24 17:42 08/10/24 17:47 Silver Nitrate Applicator Stick..Ea. TOPICAL 08/10/24 17:43 6 appl ONCE ONE Administration Procedures Epistaxis Control Time Out Performed: No Nostril: Yes left Nose prepped with: Yes cocaine 4% (Rolled cotton plinths times 30 minutes x2) Direct inspection: Yes anterior source identified (3 small spots noted on the anterior nasal septum) Direct inspection method: Yes nasal speculum Clots removed by: Yes blowing nose Epistaxis treatment: Yes silver nitrate cautery (For cautery sticks use) Results of treatment: Yes bleeding controlled Complications: Yes none and Yes other ( packed w double Merocel nasal tampon, hydrated 4 cc lido w epi) Medical Decision Making Medical Decision Making [facility] Narrative: 74-year-old male with a history of 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 The patient states that he completed a 10 day course of radiation therapy to his brain and is going to start another course of radiation therapy to his thoracic spine. He states that this morning at 09:00 hours he blew his nose and was bleeding profusely from his left nares. He was able to stop the bleeding but then it recurred again and he called an ambulance and was brought to emergency department. Paramedics noted that the patient was dyspneic, had wheezing and crackles in his lungs and they treated him with Solu-Medrol 125 mg IV and a DuoNeb EN route to the emergency department.Vital signs revealed an elevated respiratory rate of 22 otherwise unremarkable. Patient had obvious bleeding from his left nares, he had a large clot which was evacuated by him blowing his nose. There are 2 punctate areas noted on the anterior nasal septum which he was most likely bleeding source. Lung exam revealed wheezing but no rales or rhonchi. Differential diagnosis: ?Includes but is not limited to epistaxis secondary to blowing nose, epistaxis secondary to chemotherapy, congestive heart failure, COPD exacerbation, pneumonia, electrolyte abnormalities Course: 17:46 My independent interpretation patient's laboratory evaluation is as follows: WBCs low 1500 with an absolute neutrophil count of 1200. Normocytic anemia with an H&H of 9.2 and 27.6-most likely caused by chemotherapy. Platelet count was normal. High sensitive troponin I detectable but not elevated at 24.9. Repeat 2 hour troponin at 20:12 he was ordered. VBG revealed an elevated pH of 7.49, low CO2 of 30, low bicarb of 23.-this is consistent with hyperventilation. 18:46 Patient was left nares was packed with 4% cocaine 30 minutes x2 with control of his bleeding. There were 3 small areas on his nasal septum that looks like they could be the source of his bleeding and these were cauterized with silver nitrate sticks. He was left nares was packed with double Merocel packing which was hydrated with 1% lidocaine with epinephrine x3 mm. Patient was started on cephalexin 500 mg 4 times a day for 5 days prophylactically to prevent an infection and toxic shock syndrome. He was given his 1st dose here in the emergency department. The patient does have a low white blood cell count but does not have absolute neutropenia which is reassuring. Patient did have a detectable troponin but I do not think that he was having an MS at this time he was had similar elevations in his troponin in the past. The patient told me that it was not for his nosebleed he would not have come to the emergency department for his chest pain or his shortness of breath since he has been having these for some time. I believe his wheezing and shortness of breath is consistent with a mild COPD exacerbation The patient was discharged home with verbal and printed instructions and epistaxis. He was to follow-up with our ears nose and throat surgeon in 3-4 days for nasal packing removal and re-evaluation. I told him that if are ENT physician Dr. Brizuela then you can return to the emergency department and we can remove his packing. Admission/Observation Consideration of admission/observation: Escalation of care including admission/observation considered (Yes) Lab Data MDM Lab Attestation statement: I reviewed the patient's lab results. 08/10/24 17:12 08/10/24 17:12 Labs: Lab Results 08/10/24 08/10/24 Range/Units 17:12 17:16 WBC 1.5 L (4.8-10.8) X10*3/uL RBC 2.83 L (4.60-5.80) X10*6/uL Hgb 9.2 L (14.0-18.0) g/dl Hct 27.6 L (42.0-52.0) % MCV 97.5 (80.0-98.0) fL MCH 32.5 (27.0-33.0) pg MCHC 33.3 (31.0-36.0) g/dl RDW 21.6 H (11.0-16.0) % Plt Count 193 D (160-400) X10*3/uL MPV 10.0 (9.4-12.4) fL Immature Gran % (Auto) 4.0 H (0.0-0.4) % Neut % (Auto) 78.8 H (45-73) % Lymph % (Auto) 13.2 L (20-40) % [place] % (Auto) 4.0 (2-11) % Eos % (Auto) 0.0 (0-4) % Baso % (Auto) 0.0 (0-2) % Lymph # (Auto) 0.2 L (1.2-4.9) X10*3/uL [place] # (Auto) 0.1 (0.1-1.2) X10*3/uL Eos # (Auto) 0.0 (0.0-0.4) X10*3/uL Baso # (Auto) 0.0 (0.0-0.2) X10*3/uL Abs Immat Gran (auto) 0.06 H (0.00-0.03) X10*3/uL Absolute Neuts (auto) 1.2 L (2.0-8.3) x10*3/uL Absolute Nucleated RBC 0.000 (0.0-0.012) X10*3/uL Nucleated RBC % (auto) 0.0 (0.0-0.2) /100WBC Smear Tech's Comments VERIFIED PT 12.1 (10.9-12.4) SEC INR 1.0 (0.9-1.1) VBG pH 7.49 H (7.32-7.43) VBG pCO2 30 mmHg VBG pO2 58 mmHg VBG HCO3 23 (22-26) mmol/L VBG O2 Saturation 87.0 % VBG Base Excess 0.9 mmol/L Sodium 139 (135-145) mmol/L Potassium 4.3 (3.3-5.1) mmol/L Chloride 110 H (96-108) mmol/L Carbon Dioxide 21 L (22-29) mmol/L Anion Gap 12 (12-20) BUN 32 H (9-16) mg/dL Creatinine 0.81 (0.5-1.4) mg/dL Estim Creat Clear Calc 107.9 Estimated GFR > 60 Random Glucose 127 H (60-115) mg/dL Calcium 8.8 (8.4-10.2) mg/dL Magnesium 2.1 (1.6-2.6) mg/dL Total Bilirubin 0.7 (0.0-1.0) mg/dL AST 33 (5-37) U/L ALT 53 H (0-40) U/L Alkaline Phosphatase 100 (39-117) U/L Troponin I High Sens 24.9 (<3.5-35.0) ng/L Total Protein 7.1 (6.5-8.0) g/dL Albumin 3.7 (3.5-5.0) g/dL Independent Interpretation I performed an independent interpretation of an: EKG and Plain X-Ray Interpretation: My independent interpretation patient's 12 EKG done on 08/10/2024 at 16:27 hours he was as follows: Normal sinus rhythm with a rate of 76, normal MD interval, prolonged QRS of 100 milliseconds, normal QTC interval, no ST segment elevation, no ST segment depression, no significant T-wave abnormalities, Q-waves noted in 2, 3 and AVF. Compared to EKG dated 06/17/2024 at 09:38 hours there were no significant change in his, the Q-waves in her old. My independent interpretation patient's one-view chest x-ray is as follows: I think there is no significant change compared to the previous chest x-ray, I did reveal the radiology reading below and I think these findings are consistent with his lung cancer. Radiology Impression Discussion of test interpretation with radiology: I have reviewed the radiologist's reading. Radiologist Impression: 2 view chest x-ray Comparison: CR/MD/SR - XR CHEST 2V - 06/17/24 10:13 EST Findings: 4 cm right upper lobe nodule, grossly unchanged. Nodular fullness within the right hilum, grossly unchanged. There may be a mild degree of airspace opacity within the left lower lung. No pleural effusion. There is a focus of pleural thickening within the lateral aspect of the left mid chest. This may be slightly increased. Normal size heart. No acute fracture. There is a left-sided Port-A-Cath within the superior vena cava. There is mild extension of a portion of the catheter into the internal jugular vein, new since the prior study. IMPRESSION: 1. There may be a mild degree of atelectasis or infiltrate within the left lower lung. 2. A 4 cm right upper lobe nodule and soft tissue fullness of the right hilum are grossly unchanged. 3. There is a focus of pleural thickening within the lateral aspect of the left mid chest. This may be slightly increased. 4. There is a left-sided Port-A-Cath within the superior vena cava. There is mild extension of a portion of the catheter into the internal jugular vein, new since the prior study. This document has been electronically signed by: Cindy Abel MD on 08/10/2024 18:26:35 Discharge Plan Discharge Clinical Impression: Left-sided epistaxis, COPD exacerbation Patient Disposition: Home, Self-Care Instructions: Nosebleed (ED) Additional Instructions: You had 3 small areas of bleeding on the nasal septum in your left nostril. You were packed with cocaine soaked cotton for 1 hour We then cauterized the 3 small areas of bleeding with silver nitrate sticks. You were then packed with a double merocel nasal 10 which was hydrated with 1% lidocaine with epinephrine. This packing needs to stay in for 4 days. I want you to call our ENT surgeon, Dr. Brizuela tomorrow to see if he can follow you up this week to remove the nasal packing. The packing should be removed on or Saturday of this week. If he can not see you then return to the emergency department either or Saturday morning and we will remove the packing. I am starting you on an antibiotic called Keflex (cephalexin) 500 mg 4 times a day for 5 days. This is to prevent a infection from the packing. Even if your packing in removed make sure you finish the full 5 day course Follow-up with your doctor in 2 days. Please return to the emergency department if your symptoms get worse or if you develop any symptoms that are concerning to you. Prescriptions: New cephalexin 500 mg capsule 500 mg PO QID 5 Days Qty: 20 0RF No Action ipratropium-albuterol 0.5 mg-3 mg(2.5 mg base)/3 mL solution for nebulization 3 ml inhalation BID PRN (Reason: wheezing) Qty: 180 3RF folic acid 1 mg Tablet 1 mg PO DAILY Qty: 30 3RF dexamethasone 4 mg tablet 4 mg PO DAILY gabapentin 300 mg Capsule 300 mg PO TID Qty: 90 0RF morphine 60 mg Tablet Extended Release 60 mg PO Q12H Qty: 60 0RF Rx Instructions: Partial Fill upon patient request. hydromorphone 2 mg Tablet 2 mg PO Q6H Qty: 45 0RF Rx Instructions: Partial Fill upon patient request. albuterol sulfate 90 mcg/actuation HFA aerosol inhaler 2 puff inhalation Q4H PRN (Reason: wheezing) sertraline 50 mg tablet 50 mg PO DAILY metoprolol succinate 25 mg tablet extended release 24 hr 25 mg PO DAILY albuterol sulfate 2.5 mg /3 mL (0.083 %) solution for nebulization 2.5 mg inhalation Q4H PRN (Reason: wheezing) clopidogrel 75 mg tablet 75 mg PO DAILY hydroxyzine HCl 25 mg tablet 25 mg PO TID PRN (Reason: anxiety) amlodipine 2.5 mg tablet 2.5 mg PO DAILY atorvastatin 40 mg tablet 40 mg PO QPM aspirin [Adult Low Dose Aspirin] 81 mg tablet,delayed release (DR/EC) 81 mg PO DAILY Trelegy Ellipta 200-62.5-25 mcg blister with device 1 inh inhalation DAILY Qty: 60 3RF Referrals: Donovan Brizuela [Physician] - Print Language: Jamaican
[2024-08-10] MEDS: Cocaine HCl 4 % 4 ML SOLUTION TOPICAL (16:45)
--- NOTE | 2024-08-10 16:46 | PC.NURSE ---
provider to apply cocaine to epistaxis
[2024-08-10 17:19] LABS: Hematocrit 27.6 % (42.0-52.0); Hemoglobin 9.2 g/dl (14.0-18.0); Imm Gran Abs Auto 0.06 X10*3/uL (0.00-0.03); Lymphocytes Absolute Auto 0.2 X10*3/uL (1.2-4.9); Lymphocytes Percent Auto 13.2 % (20-40); MANUAL DIFF FLAG SCAN; Mean Corpuscular HGB Conc 33.3 g/dl (31.0-36.0); Mean Corpuscular Hemoglobin 32.5 pg (27.0-33.0); Mean Corpuscular Volume 97.5 fL (80.0-98.0); Monocytes Absolute Auto 0.1 X10*3/uL (0.1-1.2); Neutrophils Absolute Auto 1.2 x10*3/uL (2.0-8.3); Neutrophils Percent Auto 78.8 % (45-73); Platelet Count 193 X10*3/uL (160-400); Red Blood Count 2.83 X10*6/uL (4.60-5.80); Red Cell Distribution Width 21.6 % (11.0-16.0); SCAN SMEAR FLAG 1
[2024-08-10 17:21] LABS: White Blood Count 1.5 X10*3/uL (4.8-10.8)
[2024-08-10 17:24] LABS: Prothrombin Time 12.1 SEC (10.9-12.4); Venous Blood Gas Refer to POC result
[2024-08-10 17:24] LABS: VBG Base Excess 0.9 mmol/L; VBG HCO3 23 mmol/L (22-26); VBG pCO2 30 mmHg; VBG pH 7.49 (7.32-7.43); VBG pO2 58 mmHg
[2024-08-10 17:35] LABS: Alanine Aminotransferase 53 U/L (0-40); Albumin Level 3.7 g/dL (3.5-5.0); Alkaline Phosphatase 100 U/L (39-117); Anion Gap 12 (12-20); Aspartate Amino Transferase 33 U/L (5-37); Bilirubin Total 0.7 mg/dL (0.0-1.0); Blood Urea Nitrogen 32 mg/dL (9-16); Calcium 8.8 mg/dL (8.4-10.2); Carbon Dioxide 21 mmol/L (22-29); Chloride 110 mmol/L (96-108); Creatinine Clr Calc Pharmacy 107.9; Estimated Glomerular Filt Rate > 60; Glucose Random 127 mg/dL (60-115); Magnesium 2.1 mg/dL (1.6-2.6); Potassium 4.3 mmol/L (3.3-5.1); Sodium 139 mmol/L (135-145); Total Protein 7.1 g/dL (6.5-8.0)
[2024-08-10 17:41] LABS: SLIDE REVIEW VERIFIED; Troponin-I High Sensitivity 24.9 ng/L (<3.5-35.0)
[2024-08-10] MEDS: Silver Nitrate Applicator STICK..EA. 6 APPL TOPICAL (17:47)
[2024-08-10] MEDS: cephALEXin 500 MG CAPSULE PO (19:10)
[2024-08-10] MEDS: Lidocaine HCl 1%/Epi 1:100,000 10 ML VIAL INFILTRATI (19:13)
--- NOTE | 2024-08-10 19:13 | PC.NURSE ---
medications given my provider
[2024-08-10 19:40] VITALS: BP 147/81; PULSE 89; RESP 16; TEMP 36.8; O2SAT 94
== END 2024-08-10 21:11 | disposition home or self-care (01) ==
PROVIDERS: Physician Assistant Medical; Emergency Provider Emergency Medicine Emergency Medical Services; PCP Internal Medicine
DX: J44.1 Chronic obstructive pulmonary disease with (acute) exacerbation (principal); R04.0 Epistaxis; R06.02 Shortness of breath; R94.31 Abnormal electrocardiogram [ECG] [EKG]; Z79.899 Other long term (current) drug therapy
CPT/HCPCS: 71046; 80053; 82803; 83735; 84484; 85025; 85610; 93005; 99284; C9143; J2004

== ENCOUNTER → 2024-08-10 16:03 | Outpatient (BNV) | payer MEDICARE, MEDICAID, SELFPAY | PROVIDERS: Emergency Provider Emergency Medicine Emergency Medical Services; PCP Internal Medicine; Visit Provider Radiology Diagnostic Radiology | DX: R91.8 Other nonspecific abnormal finding of lung field (principal); J98.11 Atelectasis | CPT/HCPCS: 71046 ==

== ENCOUNTER → 2024-08-10 16:04 | Outpatient (BNV) | payer MEDICARE, MEDICAID, SELFPAY | PROVIDERS: Emergency Provider Emergency Medicine Emergency Medical Services; PCP Internal Medicine; Visit Provider Internal Medicine Cardiovascular Disease | DX: I25.2 Old myocardial infarction (principal) | CPT/HCPCS: 93010 ==

== ENCOUNTER 2024-08-18 15:01 | Inpatient (IN) | payer MEDICARE, OTHER, SELFPAY ==
[2024-08-18] VITALS (10 sets, daily range): BP systolic 121–144; BP diastolic 62–96; PULSE 77–104; RESP 14–26; TEMP 36.4–36.6; O2SAT 92–100; BMI 37.3
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
--- NOTE | ~2024-08-18 | CT_ITS ---
CLINICAL HISTORY: r o worsening CT changes CT head without contrast Comparison: CT/SR - CT HEAD/BRAIN WO IV CON - 08/18/24 19:10 EDT MR - MR HEAD/BRAIN WO/W CON - 05/24/24 16:58 EST Findings: There is small area of hypodensity with a rim of mild hyperdensity in the left temporal occipital region stable from the prior CT. This is in the location of an enhancing mass on the prior MRI most consistent with a metastasis. The small enhancing mass in the right frontal lobe on the prior MRI is poorly visualized on CT. There is an unchanged tiny focus of calcification in the right parietal lobe and right frontal lobe at the vertex. There is no acute intracranial hemorrhage. There is an unchanged small area of encephalomalacia in the left frontal lobe white matter. Hypoattenuation in the deep cerebral white matter is stable and consistent with chronic small-vessel ischemic disease. Ventricles are of normal size and shape. There is no midline shift. The visualized portions of the orbits, paranasal sinuses, and mastoids are unremarkable. No fractures are identified. IMPRESSION: 1. No acute intracranial abnormality. 2. Small area of hypodensity with a rim of mild hyperdensity in the left temporal occipital region is stable from the recent CT and corresponds to an enhancing mass on the prior MRI most consistent with a metastasis. 3. Additional chronic findings as above. This document has been electronically signed by: Maged Cardona MD on 08/19/2024 02:21:09
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
--- NOTE | ~2024-08-18 | CT_ITS ---
EXAMINATION: CT HEAD WITHOUT CONTRAST CLINICAL INFORMATION: Follow up possible brain bleed. COMPARISON: Earlier same day at 1:18 AM. 08/18/2024 7:17 PM. TECHNIQUE: Contiguous axial imaging was performed from the skull base to vertex without intravenous administration of contrast. This CT examination was performed using dose optimization techniques as appropriate, variously including the following: *Automated exposure control *Adjustment of mA and/or kV according to patient size (this includes techniques or standardized protocols for targeted exams where dose is matched to indication/reason for exam; i.e. extremities or head) *Use of iterative reconstruction technique FINDINGS: Completely stable appearance to the patchy hyperdensity within the left temporo-occipital region, in the region of a known metastatic lesion. This likely represents a tiny amount of subarachnoid hemorrhage. No significant interval change. No gross mass effect identified. There is a small amount of surrounding edema likely relating to the primary underlying lesion. Tiny calcification in the right parietal region, unchanged. Ventricles, sulci, and cisterns are normal in size and configuration. No hydrocephalus or midline shift. Stable hypodensity in the left frontal white matter. Subtle focus of rounded hypodensity in the right frontal white matter. No intraventricular hemorrhage or extra-axial collection seen. Imaged orbits, paranasal sinuses, mastoids, and osseous structures are unremarkable. CT/CT head/brain wo IV con IMPRESSION: 1. No significant interval change. Stable small focus of hyperdensity surrounding the known metastasis, most likely a small focus of subarachnoid hemorrhage. 2. No additional intracranial hemorrhage or mass effect. Electronically signed by: Brody Waddell MD 08/19/2024 03:06 PM EDT
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
[2024-08-18] MEDS: Oxymetazoline HCl 0.05 % Nasal 15 ML SPRAY 2 SPRAY NOSTRIL-B (16:09)
--- NOTE | 2024-08-18 16:30 | PC.NURSE ---
Upon arrival to ED pt a/ox3, calm/cooperative with staff, switched to Oxymask 2 liters- maintaining O2 sat >92%. Per pt, wears 5L O2 at home baseline. Pt up ambulating around the room, endorsing sob while walking around the room without oxygen. Pt educated on need to keep oxygen mask on while walking around the room. Pt yelling at this RN, I need more oxygen, I can't breathe . Pt educated on increasing O2 LPM with COPD- retaining. Pt redirected back into bed, O2 sat >92% throughout episode. Able to recover while sitting in bed.
[2024-08-18] MEDS: Tranexamic Acid 1,000 MG/10 ML VIAL 500 MG INTRANASAL (17:10)
[2024-08-18] MEDS: Albuterol Sulfate 90 MCG 8 GM INHALER 8 PUFF INHALE (17:57)
--- NOTE | 2024-08-18 18:38 | PC.NURSE ---
Pt up oob without oxygen on standing in doorway yelling, I need oxygen. Pt educated on need to keep oxygen on. Pt stating he is very sob and needs more oxygen. Pt states he is not normally sob while ambulating at home- pt unable to tell this RN what is different about ambulating here. MD Villalpando at bedside, respiratory called for breathing treatment. O2 sats remained >92%.
[2024-08-18 18:44] LABS: Venous Blood Gas Refer to POC result
[2024-08-18 18:45] LABS: Basophils Percent Auto 0.5 % (0-2); Imm Gran Abs Auto 0.01 X10*3/uL (0.00-0.03); Imm Gran Pct Auto 0.5 % (0.0-0.4); Lymphocytes Absolute Auto 0.6 X10*3/uL (1.2-4.9); Lymphocytes Percent Auto 29.5 % (20-40); MANUAL DIFF FLAG SCAN; Mean Corpuscular Hemoglobin 33.2 pg (27.0-33.0); Mean Corpuscular Volume 97.6 fL (80.0-98.0); Mean Platelet Volume 10.6 fL (9.4-12.4); Monocytes Absolute Auto 0.4 X10*3/uL (0.1-1.2); Monocytes Percent Auto 22.3 % (2-11); NRBC Pct Auto 2.1 /100WBC (0.0-0.2); Neutrophils Absolute Auto 0.9 x10*3/uL (2.0-8.3); Neutrophils Percent Auto 47.2 % (45-73); Red Blood Count 2.11 X10*6/uL (4.60-5.80); Red Cell Distribution Width 21.1 % (11.0-16.0); SCAN SMEAR FLAG 1; White Blood Count 1.9 X10*3/uL (4.8-10.8)
[2024-08-18 18:46] LABS: VBG HCO3 30 mmol/L (22-26); VBG pCO2 48 mmHg; VBG pO2 28 mmHg
[2024-08-18 18:47] LABS: Hematocrit 20.6 % (42.0-52.0); Platelet Count 14 X10*3/uL (160-400)
[2024-08-18 18:58] LABS: SLIDE REVIEW VERIFIED
[2024-08-18 19:01] LABS: Prothrombin Time 12.2 SEC (10.9-12.4)
[2024-08-18 19:07] LABS: Troponin-I High Sensitivity 37.9 ng/L (<3.5-35.0)
[2024-08-18 19:10] LABS: Alanine Aminotransferase 49 U/L (0-40); Albumin Level 3.7 g/dL (3.5-5.0); Anion Gap 15 (12-20); Aspartate Amino Transferase 39 U/L (5-37); Bilirubin Direct 0.3 mg/dL (0.0-0.5); Bilirubin Total 0.9 mg/dL (0.0-1.0); Blood Urea Nitrogen 27 mg/dL (9-16); Calcium 8.3 mg/dL (8.4-10.2); Carbon Dioxide 25 mmol/L (22-29); Chloride 102 mmol/L (96-108); Creatinine Clr Calc Pharmacy 102.8; Estimated Glomerular Filt Rate > 60; Glucose Random 134 mg/dL (60-115); Potassium 4.1 mmol/L (3.3-5.1); Sodium 138 mmol/L (135-145); Total Protein 6.8 g/dL (6.5-8.0)
[2024-08-18 19:18] LABS: B Type Natriuretic Peptide 104 pg/mL (<100)
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
[2024-08-18 19:31] LABS: Alkaline Phosphatase 105 U/L (39-117)
[2024-08-18 20:28] LABS: Influenza A PCR NEGATIVE (Negative); Influenza B PCR NEGATIVE (Negative); Resp Syncy Virus RNA Qual PCR NEGATIVE (Negative); SARS COV2 PCR INHOUSE NEGATIVE (Negative)
--- NOTE | 2024-08-18 21:23 | ECG_ITS ---
Test Reason : ANEMIA Blood Pressure : */* mmHG Vent. Rate : 79 BPM Atrial Rate : 79 BPM P-R Int : 144 ms QRS Dur : 106 ms QT Int : 410 ms P-R-T Axes : 60 -9 51 degrees QTcB Int : 470 ms Normal sinus rhythm Lateral infarct (cited on or before 10-Aug-2024) Inferior-posterior infarct (cited on or before 20-Sep-2013) Abnormal ECG When compared with ECG of 10-Aug-2024 16:27, No significant change was found Referred By: Alyson Villalpando Electronically Signed By: YOLY BURNHAM
[2024-08-19] VITALS (18 sets, daily range): BP systolic 114–141; BP diastolic 61–84; PULSE 74–96; RESP 12–22; TEMP 36.3–36.8; O2SAT 94–100; BMI 35.0
[2024-08-19 06:19] LABS: Hemoglobin 8.5 g/dl (14.0-18.0); Mean Corpuscular HGB Conc 35.4 g/dl (31.0-36.0); Mean Corpuscular Hemoglobin 33.9 pg (27.0-33.0); Mean Corpuscular Volume 95.6 fL (80.0-98.0); Mean Platelet Volume 10.4 fL (9.4-12.4); Red Blood Count 2.51 X10*6/uL (4.60-5.80); Red Cell Distribution Width 18.5 % (11.0-16.0)
[2024-08-19 06:20] LABS: NRBC Pct Auto 8.4 /100WBC (0.0-0.2); Platelet Count 26 X10*3/uL (160-400); White Blood Count 1.5 X10*3/uL (4.8-10.8)
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
[2024-08-19] MEDS: dexAMETHasone 4 MG TABLET PO ×3 (07:35→21:14)
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
[2024-08-19] MEDS: Morphine Sulfate 2 MG/ML CARTRIDGE IVPUSH (09:08)
[2024-08-19] MEDS: 0.9 % Sodium Chloride Flush 3 ML SYRINGE IVFLUSH ×3 (09:16→21:14)
--- NOTE | 2024-08-19 09:17 | PC.NURSE ---
ASSUMED CARE OF PT THIS AM. IN NAD, VOIDED THIS AM, INSISTING ON AMBULATING TO RESTROOM. SPO2 WELL MAINTAINED, THOUGH SIGNIFICANT INCREASE IN WOB. PLACED BACK ON OXYMASK FOR COMFORT AT 2L. PT ENDORSING 10/10 LUMBAR PAIN THIS AM, MED REC NOT YET COMPLETED BY PHARMACY. VERIFIED BG FLYNN MOP, MESSAGE SENT TO HOSPITALIST, NEW ORDERS IN. PORT ACCESS NO LONGER PATENT. BILAT #20S PLACED, PORT ACCESS TO BE REMOVED. 1ST BAG OF PLT CURRENTLY RUNNING WITH NO ISSUE.
[2024-08-19 10:23] LABS: Ammonia 63 umol/L (13-55)
--- NOTE | 2024-08-19 11:09 | PC.NURSE ---
Report received from ADRIANNA Orellana. Taken over care at this time.
--- NOTE | 2024-08-19 11:43 | PHA.MEDREC ---
Addendum entered by Ugo Mixon valencia 08/19/24 11:59: Per patient's sister Shelley, patient takes dexamethasone 2 mg in the morning and prednisone 10 mg in the afternoon (she said he doesn't do the tapering schedule). She was able to name the med that he takes for blood pressure (amlodipine), cholesterol (atorvastatin) and blood/stent (clopidogrel). The 2 pain medications that he takes are hydromorphone and morphine. She said he doesn't take metoprolol, omeprazole, oxycodone, sertraline nor tramadol. She was able to name the gabapentin for nerve pain but not sure of the dose. Original Note: Pharmacy Consult ? Medication Reconciliation Pharmacy has completed the medication reconciliation. Patient was poor historian and was not sure what he takes at this time and told us to call his sister, Shelley. Shelley came into the ED and we spoke with her about the patients medications. She was able to confirm most of them but any meds she did not know we confirmed utilizing claims. The patient stated he last took his medications yesterday morning but according to pt sister, Shelley, her found a bunch of scattered pills on the ground of the patients room and does not think the patient has been compliant with taking his medications.
--- NOTE | 2024-08-19 12:07 | PC.NURSE ---
Speech therapy completed bedside evaluation.
--- NOTE | 2024-08-19 12:24 | MHC.CM.PN ---
IMM 08/19/24, signed by HCP, pt.'s sister, Shelley. Pt. has AMS at this time. PCP confirmed: Flo Burgess, HCP updated copy obtained, naming Shelley and Asael, new HCP uploaded to chart. Pt. lives alone, does not have home health services. For DME, he has home O2 and a walker. DCP: STR or LTC, HCP has said that pt. should not be living alone and will not let home care providers in the home. CM to follow for DC needs.
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
[2024-08-19] MEDS: LORazepam 0.5 MG TABLET PO (13:55)
--- NOTE | 2024-08-19 15:39 | PC.NURSE ---
Pt. continues to be noncompliant and taking off oxygen that he needs and monitor supplies, and pt. is unsteady while walking and instructed not to get up alone. Pt. in bathroom struggling to catch his breath, educated and pt. still not listening.
--- NOTE | 2024-08-19 15:50 | PC.NURSE ---
Pt. assisted back to bed, informed pt. to not get up d/t low oxygen saturation, showed pt. oxygen saturation when placed back in bed, was 79-80%, pt. still struggling to catch his breath. Placed pt. back on 5L/Oxy mask as directed and ordered, pt. slowly having better oxygenation at 94-95%.
--- NOTE | 2024-08-19 17:16 | PM.EVENT ---
Event Note Date of Service: 08/19/24 Event Note: pt seen and examined, vitals, labs and med reviewed. Here with nose bleed due to low plat related to chemo and plavix use, bleed has stopped s/p plat transfusion, monitor H/H and plat, stop plavix until plt 75 per oncology Time Spent With Patient Time: Total time managing care of this patient today ____ minutes.
[2024-08-19] MEDS: Gabapentin 300 MG CAPSULE PO (21:11)
[2024-08-19] MEDS: Morphine Sulfate ER 30 MG TABLET.ER 60 MG PO (21:12)
[2024-08-19] MEDS: HYDROmorphone HCl 2 MG TABLET PO (21:12)
[2024-08-20] VITALS (8 sets, daily range): BP systolic 117–156; BP diastolic 58–93; PULSE 83–111; RESP 15–20; TEMP 36.1–36.4; O2SAT 95–100
[2024-08-20] MEDS: LORazepam 0.5 MG TABLET PO ×3 (01:24→21:22)
[2024-08-20] MEDS: HYDROmorphone HCl 2 MG TABLET PO ×3 (04:07→16:19)
[2024-08-20] MEDS: dexAMETHasone 4 MG TABLET PO ×2 (06:02→15:29)
[2024-08-20 06:32] LABS: Hematocrit 24.2 % (42.0-52.0); Hemoglobin 8.5 g/dl (14.0-18.0); Imm Gran Abs Auto 0.03 X10*3/uL (0.00-0.03); Imm Gran Pct Auto 1.3 % (0.0-0.4); Lymphocytes Absolute Auto 0.4 X10*3/uL (1.2-4.9); Lymphocytes Percent Auto 14.8 % (20-40); MANUAL DIFF FLAG SCAN; Mean Corpuscular HGB Conc 35.1 g/dl (31.0-36.0); Mean Corpuscular Hemoglobin 33.2 pg (27.0-33.0); Mean Corpuscular Volume 94.5 fL (80.0-98.0); Mean Platelet Volume 10.1 fL (9.4-12.4); Monocytes Absolute Auto 0.4 X10*3/uL (0.1-1.2); Monocytes Percent Auto 18.1 % (2-11); Neutrophils Absolute Auto 1.6 x10*3/uL (2.0-8.3); Neutrophils Percent Auto 65.8 % (45-73); Red Blood Count 2.56 X10*6/uL (4.60-5.80); Red Cell Distribution Width 18.9 % (11.0-16.0); SCAN SMEAR FLAG 1
[2024-08-20 06:35] LABS: Anion Gap 14 (12-20); Blood Urea Nitrogen 18 mg/dL (9-16); Carbon Dioxide 23 mmol/L (22-29); Chloride 106 mmol/L (96-108); Creatinine Clr Calc Pharmacy 122.2; Estimated Glomerular Filt Rate > 60; Glucose Random 154 mg/dL (60-115); Potassium 3.9 mmol/L (3.3-5.1); Sodium 139 mmol/L (135-145)
[2024-08-20 06:36] LABS: NRBC Pct Auto 3.8 /100WBC (0.0-0.2); Platelet Count 33 X10*3/uL (160-400); White Blood Count 2.4 X10*3/uL (4.8-10.8)
[2024-08-20 08:28] LABS: SLIDE REVIEW VERIFIED
[2024-08-20] MEDS: Fluticasone/Umeclidinium/Vilanterol 200/62.5/25 BLST.W.DEV 1 PUFF INHALE (08:35)
[2024-08-20] MEDS: amLODIPine Besylate 2.5 MG TABLET PO ×2 (08:56→08:57)
[2024-08-20] MEDS: Gabapentin 300 MG CAPSULE PO ×3 (08:57→21:24)
[2024-08-20] MEDS: Atorvastatin Calcium 40 MG TABLET PO (08:57)
[2024-08-20] MEDS: 0.9 % Sodium Chloride Flush 3 ML SYRINGE IVFLUSH ×2 (08:58→15:30)
[2024-08-20] MEDS: guaiFENesin LA 600 MG TAB.ER.12H PO ×2 (11:17→21:23)
[2024-08-20] MEDS: predniSONE 10 MG TABLET PO (11:20)
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
--- NOTE | 2024-08-20 14:46 | W.MHC.ACPN ---
Advanced Care Planning Note Advanced Care Planning Note Discussed with: patient and family member(s) Time spent (in minutes): 18 Narrative: I had the chance to speak to the patient first about his ongoing diagnosis and prognosis after talking to dr Clayton who suggesting stopping Chemo and Radiation therapy for now and follow as outpatient. she thinks he should be hospice at this point given significant deconditioning and chemo related side effects. The patient became anxious and started asking how long will he has and when will he . I explained the him that we are suggesting changing the goal from treating the cancer and slowing its progression to manage his symptoms and avoid more complications. discussed changing code status to DNR\DNI which he agreed to but he still wants to talk to his sister(HCP) and he about. I spoke to his HCP (Shelley) who understand the logic behind hospice and holding chemotherapy. she had some questions which i answered. she will talk to the patient about code status and sign MOLST if all agree. Problems Discussed (1) Obesity (BMI 35.0-39.9 without comorbidity): (2) Elevated troponin: (3) Elevated LFTs: (4) Brain bleed: (5) AMS (altered mental status): (6) Metastatic primary lung cancer: (7) Pancytopenia:
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
[2024-08-20] MEDS: Melatonin 3 MG TABLET 6 MG PO (21:23)
[2024-08-20] MEDS: dexAMETHasone 2 MG TABLET PO (21:33)
[2024-08-21] MEDS: dexAMETHasone 2 MG TABLET PO ×3 (02:56→19:34)
[2024-08-21 02:58] VITALS: BP 160/80; PULSE 91; RESP 18; TEMP 36.3; O2SAT 96
[2024-08-21] MEDS: LORazepam 0.5 MG TABLET PO ×3 (04:17→19:34)
[2024-08-21] MEDS: 0.9 % Sodium Chloride Flush 3 ML SYRINGE IVFLUSH ×4 (04:20→19:41)
[2024-08-21 07:11] LABS: MANUAL DIFF FLAG NO
[2024-08-21 07:27] LABS: Hematocrit 25.1 % (42.0-52.0); Hemoglobin 8.9 g/dl (14.0-18.0); Imm Gran Abs Auto 0.06 X10*3/uL (0.00-0.03); Imm Gran Pct Auto 1.9 % (0.0-0.4); Lymphocytes Absolute Auto 0.5 X10*3/uL (1.2-4.9); Lymphocytes Percent Auto 14.6 % (20-40); Mean Corpuscular HGB Conc 35.5 g/dl (31.0-36.0); Mean Corpuscular Hemoglobin 34.2 pg (27.0-33.0); Mean Corpuscular Volume 96.5 fL (80.0-98.0); Mean Platelet Volume 9.8 fL (9.4-12.4); Monocytes Absolute Auto 0.6 X10*3/uL (0.1-1.2); Monocytes Percent Auto 17.4 % (2-11); Neutrophils Absolute Auto 2.1 x10*3/uL (2.0-8.3); Neutrophils Percent Auto 66.1 % (45-73); Red Cell Distribution Width 18.9 % (11.0-16.0); White Blood Count 3.2 X10*3/uL (4.8-10.8)
[2024-08-21 07:41] LABS: Anion Gap 13 (12-20); Blood Urea Nitrogen 20 mg/dL (9-16); Calcium 8.4 mg/dL (8.4-10.2); Carbon Dioxide 24 mmol/L (22-29); Chloride 104 mmol/L (96-108); Creatinine Clr Calc Pharmacy 122.2; Estimated Glomerular Filt Rate > 60; Glucose Random 149 mg/dL (60-115); Potassium 3.8 mmol/L (3.3-5.1); Sodium 137 mmol/L (135-145)
[2024-08-21 07:46] VITALS: BP 143/74; PULSE 95; RESP 20; TEMP 36.1; O2SAT 96
[2024-08-21 07:47] LABS: NRBC Pct Auto 4.3 /100WBC (0.0-0.2); Platelet Count 26 X10*3/uL (160-400)
[2024-08-21] MEDS: Atorvastatin Calcium 40 MG TABLET PO (08:39)
[2024-08-21] MEDS: Gabapentin 300 MG CAPSULE PO ×3 (08:40→19:34)
[2024-08-21] MEDS: HYDROmorphone HCl 2 MG TABLET PO ×2 (08:47→15:48)
[2024-08-21 11:39] VITALS: BP 128/68; PULSE 84; RESP 20; TEMP 36.2; O2SAT 93
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
[2024-08-21] MEDS: predniSONE 10 MG TABLET PO (12:31)
--- NOTE | 2024-08-21 13:24 | MHC.CM.PN ---
CM met with pt.'s sister, Alayna, she is HCP. The DCP is for pt. to go to a SNF for LTC. She would like to hold off on referral to Hospice until he is settled in a SNF. Referrals out.
--- NOTE | 2024-08-21 14:23 | MHC.SL.SOA ---
Referring Provider: Aliza Rivas Reason for Referral: Speech Language Cognition Eval Date of Plan of Treatment:08/19/24 Onset of Symptoms/Illness:08/19/24 Date Treatment Started:08/19/24 Medical Diagnosis:Mild cognitive challenges in setting of AMS, baseline functioning unknown Primary Speech Language Diagnosis:Pt has hx of visual impairment, reduced vis processing speed Secondary Speech Language Diagnosis:R47.1 Dysarthria Reason for Visit:98252 Individual Treatment Subjective:Patient was awake and alert, sitting in a reclined chair watching tv. Patient muted the TV as FURNACE WORKER introduced herself. Patient was cooperative and frequently joked throughout testing. Patient became more agitated as FURNACE WORKER prepared to depart. Patient expressed he felt frustrated with having to wear his hospital gown and having to be supervised to the rest room. Notably, patient is a Fall Risk. Objective: Patient completed selected subtests from the Repeatable Battery for the Assessment of Neuropsychological Status (RBANS Form A) to further assess cognitive linguistic ability. Assessment:Patient's performance is summarized below: Subtest: Total Score: Scaled Score: Interpretation: List Learnin, 2, Extremely Low Story Memory: 9,4, Borderline Picture Namin, <2 Percentile, Extremely Low Semantic Fluency: 13, 5, Borderline Digit Span: 10, 10, Average List Recall: 1, 3-9 Percentile, Borderline List Recognition: 15, <2 Percentile, Extremely Low Story Recall: 0, 1, Extremely Low Notes: Pt presents with mild visual processing deficits but did well with visuospatial memory tasks on CLQT. PT exhibits relative strengths in receptive language and attention. Pt experiences mild expressive language difficulties d/t poor organization, and was reported to have AMS and poor memory upon arrival to ED. It is recommended pt be further evaluated to establish more comprehensive information on pt overall cognitive/linguistic functioning in order to address any deficits appropriately. Plan: Goal # : Palomo will use internal memory strategies (i.e. rehearsal, association, visualization) to recall 5-6 items at 80% accuracy when provided with minimal verbal cues. Status of Goal: New Goal Goal # : Palomo will produce a minimum of 4 different features, when presented with a word using semantic feature analysis (SFA), given minimal verbal prompts, with 80% accuracy. Status of Goal: New Goal Seen by: Graduate/Clinical Fellow: No Supervisory Statement: f_Reg Query Last Value , MHC.AU.SIGNATUR Speech Language Pathologist: Brooklynn Rodriguez M.S., CCC-FURNACE WORKER
--- NOTE | 2024-08-21 14:49 | MHC.CM.PN ---
Pt has [facility], but it is not a plan that covers LTC, referral into financial counselors to assist pt. and family to apply for LT coverage.
--- NOTE | 2024-08-21 15:28 | PC.NURSE ---
epistaxis from the left nostril ,DR Senior was notified
[2024-08-21 15:53] VITALS: BP 152/79; PULSE 89; RESP 20; TEMP 36.7; O2SAT 94
--- NOTE | 2024-08-21 15:58 | MHC.CM.PN ---
Bernardo mcgee accepting pt. and will work on LTC [facility] while he is there, CM informed sister, and she is natalie going to accept, will call SONIA finney.
[2024-08-21] MEDS: Melatonin 3 MG TABLET 6 MG PO (19:34)
[2024-08-21] MEDS: Morphine Sulfate ER 30 MG TABLET.ER 60 MG PO (19:37)
[2024-08-21 20:00] VITALS: BP 128/77; PULSE 83; RESP 18; TEMP 36.8; O2SAT 99
[2024-08-22] MEDS: HYDROmorphone HCl 2 MG TABLET PO ×4 (03:48→22:36)
[2024-08-22] MEDS: LORazepam 0.5 MG TABLET PO ×2 (03:49→20:30)
[2024-08-22] MEDS: dexAMETHasone 2 MG TABLET PO ×3 (03:49→18:30)
[2024-08-22 04:00] VITALS: BP 136/76; PULSE 77; RESP 18; TEMP 36.4; O2SAT 97
[2024-08-22 07:08] LABS: Anion Gap 12 (12-20); Blood Urea Nitrogen 22 mg/dL (9-16); Calcium 8.4 mg/dL (8.4-10.2); Carbon Dioxide 25 mmol/L (22-29); Chloride 105 mmol/L (96-108); Creatinine Clr Calc Pharmacy 115.6; Estimated Glomerular Filt Rate > 60; Glucose Random 134 mg/dL (60-115); Potassium 4.1 mmol/L (3.3-5.1); Sodium 138 mmol/L (135-145)
[2024-08-22 07:18] LABS: Hematocrit 24.5 % (42.0-52.0); Hemoglobin 8.5 g/dl (14.0-18.0); Mean Corpuscular HGB Conc 34.7 g/dl (31.0-36.0); Mean Corpuscular Hemoglobin 33.5 pg (27.0-33.0); Mean Corpuscular Volume 96.5 fL (80.0-98.0); Mean Platelet Volume 11.3 fL (9.4-12.4); Red Blood Count 2.54 X10*6/uL (4.60-5.80); Red Cell Distribution Width 19.4 % (11.0-16.0)
[2024-08-22 07:21] LABS: NRBC Pct Auto 9.1 /100WBC (0.0-0.2); Platelet Count 23 X10*3/uL (160-400)
[2024-08-22] MEDS: Fluticasone/Umeclidinium/Vilanterol 200/62.5/25 BLST.W.DEV 1 PUFF INHALE (07:39)
[2024-08-22 07:41] VITALS: PULSE 77; RESP 18; O2SAT 94
[2024-08-22 07:57] VITALS: BP 130/69; PULSE 88; RESP 20; TEMP 36.1; O2SAT 98
[2024-08-22 08:43] LABS: Band Neutrophils Percent 3 % (3-5); Lymphocytes Absolute Manual 0.4 X10*3/uL (1.2-4.9); Lymphocytes Percent Manual 11 % (20-40); Metamyelocytes Absolute 0.1 X10*3/uL; Metamyelocytes Percent 2 %; Monocytes Absolute Manual 0.2 X10*3/uL (0.1-1.2); Monocytes Percent Manual 6 % (2-11); Myelocytes Absolute 0.1 X10*/uL; Myelocytes Percent 2 %; Neutrophils Absolute Manual 3.2 X10*3/uL (2.0-8.3); Neutrophils Percent Manual 76 % (45-73); Nucleated Red Blood Cells 4 /100WBC (0-0)
[2024-08-22 08:44] LABS: RBC Morphology NOTED
[2024-08-22 08:45] LABS: Macrocytosis 1+ (5-14) /OIF; Platelet Estimate DECREASED (NORMAL); Platelet Morphology Comment NORMAL
[2024-08-22] MEDS: Morphine Sulfate ER 30 MG TABLET.ER 60 MG PO ×2 (08:45→20:27)
[2024-08-22] MEDS: Atorvastatin Calcium 40 MG TABLET PO (08:45)
[2024-08-22] MEDS: 0.9 % Sodium Chloride Flush 3 ML SYRINGE IVFLUSH ×2 (08:45→18:31)
[2024-08-22] MEDS: Gabapentin 300 MG CAPSULE PO ×3 (08:45→20:28)
[2024-08-22] MEDS: amLODIPine Besylate 2.5 MG TABLET PO (08:45)
[2024-08-22] MEDS: guaiFENesin LA 600 MG TAB.ER.12H PO ×2 (08:48→20:29)
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
[2024-08-22] MEDS: predniSONE 10 MG TABLET PO (11:40)
[2024-08-22 11:54] LABS: Hemoglobin 8.5 g/dl (14.0-18.0); Mean Corpuscular HGB Conc 35.4 g/dl (31.0-36.0); Mean Corpuscular Hemoglobin 34.1 pg (27.0-33.0); Mean Corpuscular Volume 96.4 fL (80.0-98.0); Mean Platelet Volume 12.1 fL (9.4-12.4); Red Blood Count 2.49 X10*6/uL (4.60-5.80); Red Cell Distribution Width 19.5 % (11.0-16.0); White Blood Count 3.8 X10*3/uL (4.8-10.8)
[2024-08-22 11:56] LABS: NRBC Pct Auto 10.4 /100WBC (0.0-0.2); Platelet Count 29 X10*3/uL (160-400)
--- NOTE | 2024-08-22 11:56 | P.CNHO_ITS ---
Subjective - Subjective Chief complaint: thrombocytopenia Patient: known to practice within the last 3 years Consult date: 08/22/24 Primary Care Provider: Flo Burgess III, MD Language Arts Teacher Utilized?: No - Yoruba Speaking HPI - Consult Narrative Reason for consult: lung cancer thrombocytopenia Narrative: He has a platelet count of 23,000 and is afebrile. The WBC and hemoglobin are acceptable. He is awake and alert and eating. wbc and hgb are acce[tab;e. Review of Systems - Constitutional Reports body ache(s) - ENT Reports system reviewed and no additional complaints, except as documented - Cardiovascular Reports shortness of breath - Respiratory Reports dyspnea on exertion - Gastrointestinal Reports abdominal pain PMFSH Medical History: Medical History (Last Reviewed 08/20/24 @ 11:03 by Mi Stack, PT) Anxiety Arthritis Back pain CAD (coronary artery disease) Claustrophobia COPD (chronic obstructive pulmonary disease) Elevated cholesterol Hypertension Numbness Obesity Personal history of nicotine dependence Surgical History: Surgical History (Last Reviewed 08/20/24 @ 11:03 by Mi Stack PT) History of carpal tunnel release Onset Date: ~01/2024 History of heart artery stent History of umbilical hernia repair Social History: Social History (Last Reviewed 06/17/24 @ 10:40 by ANETTE Burgess) Living Situation History: Household Members: None Housing: Apartment Are you a primary health care sanitary technician to a significant other at home: No Do you presently have visiting nurse or other home services: No Tobacco History: Patient Tobacco Use Status: Former Tobacco user Tobacco use type: Cigarette Smoking End Date: 04/29/17 Advance Directives: Advance Directives Date on File: 05/05/24 Occupation Assessmet: service: No Current occupational status: retired Sex/Gender Assessment: Sexual orientation: Straight/Heterosexual Gender identity: Male Home Medications and Allergies Current Medications: Current Medications Acetaminophen (Acetaminophen 325 Mg Tablet) 975 mg PO Q6H PRN PRN Reason: Pain, Mild 1-3,fever,headache Albuterol Sulfate (Albuterol Sulfate (0.083%) 2.5 Mg/3 Ml Vial.Neb) 2.5 mg INHALE Q4H PRN PRN Reason: wheezing Albuterol Sulfate (Albuterol Sulfate 90 Mcg 8 Gm Inhaler) 2 puff INHALE Q4H PRN PRN Reason: wheezing Albuterol/Ipratropium (Albuterol/Iprat 2.5/0.5mg 3 Ml Ampul.Neb) 3 ml INHALE BID PRN PRN Reason: wheezing Amlodipine Besylate (Amlodipine Besylate 2.5 Mg Tablet) 2.5 mg PO DAILY [facility]; Protocol Last Admin: 08/22/24 08:45 Dose: 2.5 mg Atorvastatin Calcium (Atorvastatin Calcium 40 Mg Tablet) 40 mg PO DAILY [facility] Last Admin: 08/22/24 08:45 Dose: 40 mg Calcium Carbonate (Calcium Carbonate 750 Mg Tab.Chew) 750 mg PO Q4H PRN PRN Reason: Heartburn Dexamethasone (Dexamethasone 2 Mg Tablet) 2 mg PO Q8H [facility] Last Admin: 08/22/24 11:40 Dose: 2 mg Fluticasone/Umeclidinium/Vilanterol (Fluticasone/Umeclidinium/Vilanterol 200/62.5/25 Blst.W.Dev) 1 puff INHALE RDAILY [facility] Last Admin: 08/22/24 07:39 Dose: 1 puff Gabapentin (Gabapentin 300 Mg Capsule) 300 mg PO TID [facility] Last Admin: 08/22/24 08:45 Dose: 300 mg Guaifenesin (Guaifenesin La 600 Mg Tab.Er.12h) 600 mg PO BID [facility] Last Admin: 08/22/24 08:48 Dose: 600 mg Hydromorphone HCl (Hydromorphone Hcl 2 Mg Tablet) 2 mg PO Q6H [facility] Last Admin: 08/22/24 11:40 Dose: 2 mg Lorazepam (Lorazepam 0.5 Mg Tablet) 0.5 mg PO Q8H PRN PRN Reason: anxiety/restlessness Last Admin: 08/22/24 03:49 Dose: 0.5 mg Lorazepam (Lorazepam 0.5 Mg Tablet) 0.5 mg PO Q8H PRN PRN Reason: anxiety Last Admin: 08/21/24 19:34 Dose: 0.5 mg Magnesium Hydroxide (Milk Of Magnesia 30 Ml Oral.Susp) 30 ml PO DAILY PRN PRN Reason: Constipation Melatonin (Melatonin 3 Mg Tablet) 6 mg PO BEDTIME PRN PRN Reason: Insomnia Last Admin: 08/21/24 19:34 Dose: 6 mg Morphine Sulfate (Morphine Sulfate 2 Mg/Ml Cartridge) 2 mg IVPUSH Q4H PRN; Protocol PRN Reason: Pain, Severe (Pain Scale 7-10) Last Admin: 08/19/24 09:08 Dose: 2 mg Morphine Sulfate (Morphine Sulfate Er 30 Mg Tablet.Er) 60 mg PO BID [facility] Last Admin: 08/22/24 08:45 Dose: 60 mg Ondansetron HCl (Ondansetron Hcl 4 Mg/2 Ml Vial) 4 mg IVPUSH Q8H PRN PRN Reason: Nausea and Vomiting Prednisone (Prednisone 10 Mg Tablet) 10 mg PO DAILY@1200 [facility] Last Admin: 08/22/24 11:40 Dose: 10 mg Sodium Chloride (0.9 % Sodium Chloride Flush 3 Ml Syringe) 3 ml IVFLUSH QSHIFT [facility] Last Admin: 08/22/24 08:45 Dose: 3 ml Home Medications ?Medication ?Instructions ?Recorded ?Confirmed ?Type albuterol sulfate 2.5 mg/3 mL 2.5 mg inhalation Q4H PRN wheezing 11/19/23 08/19/24 History (0.083 %) solution for nebulization albuterol sulfate 90 mcg/actuation 2 puff inhalation Q4H PRN wheezing 11/19/23 08/19/24 History aerosol inhaler amlodipine 2.5 mg tablet 2.5 mg PO DAILY 11/19/23 08/19/24 History atorvastatin 40 mg tablet 40 mg PO DAILY 11/19/23 08/19/24 History clopidogrel 75 mg tablet 75 mg PO DAILY 11/19/23 08/19/24 History dexamethasone 2 mg tablet 2 mg PO DAILY 08/19/24 08/19/24 History gabapentin 300 mg capsule 300 mg PO TID 08/19/24 08/19/24 History hydromorphone 2 mg tablet 2 mg PO Q6H severe pain 08/19/24 08/19/24 History lorazepam 0.5 mg tablet 0.5 mg PO Q8H PRN anxiety 08/19/24 08/19/24 History prednisone 10 mg tablet 10 mg PO DAILY 08/19/24 08/19/24 History Allergies Allergy/AdvReac Type Severity Reaction Status Date / Time No Known Allergies Allergy Verified 08/18/24 15:48 Physical Exam Vital signs: Vital Signs Temp 97.0 F 08/22/24 07:57 Pulse 88 08/22/24 07:57 Resp 20 08/22/24 07:57 BP 130/69 08/22/24 07:57 Pulse Ox 98 08/22/24 07:57 O2 Del Method Room Air 08/22/24 07:57 O2 Flow Rate 4 08/22/24 04:00 Intake & Output 08/21/24 08/22/24 08/22/24 18:59 06:59 18:59 Intake Total 480 / 480 Balance 480 / 480 Intake: Intake, Oral Amount 480 / 480 Other: Meal Refused No Breakfast % Eaten 75% Lunch % Eaten 100% Eating (Feeding) Ability Independent Number of Incontinent Voids 4 Number of Unmeasured Voids 3 Number of Bowel Movements 1 Urine Bathroom Last Bowel Movement 08/18/24 Stool Bathroom Weight 117 kg - Constitutional Present: no acute distress - Routine HEENT Exam Head: Present: atraumatic - Routine Neck Exam Present: supple - Routine Respiratory Exam Present: decreased breath sounds - Routine Cardiovascular Exam Cardiovascular: Present: RRR - Routine Abdominal Exam Present: diminished bowel sounds Hem/Onc Consult Result - Labs CBC & Chem 7: 08/22/24 06:24 08/22/24 06:25 Labs: Short CBC 08/22/24 Range/Units 06:24 WBC 4.0 L (4.8-10.8) X10*3/uL Hgb 8.5 L (14.0-18.0) g/dl Hct 24.5 L (42.0-52.0) % Plt Count 23 L (160-400) X10*3/uL BMP 08/22/24 06:25 Sodium 138 Potassium 4.1 Chloride 105 Carbon Dioxide 25 BUN 22 H Creatinine 0.74 Calcium 8.4 Assessment and Plan Patient Active problem list reviewed?: Yes (1) Pancytopenia Status: Acute Assessment and plan: He is currently stable. I will follow the cell counts with you over the weekend. - Time Spent With Patient Time Spent with Patient (in minutes): 15
[2024-08-22 16:00] VITALS: BP 160/83; PULSE 90; RESP 18; TEMP 36.1; O2SAT 98
[2024-08-22 20:00] VITALS: BP 155/73; PULSE 98; RESP 18; TEMP 36.7; O2SAT 100
[2024-08-22] MEDS: Melatonin 3 MG TABLET 6 MG PO (20:27)
[2024-08-23] MEDS: dexAMETHasone 2 MG TABLET PO ×3 (03:36→18:13)
[2024-08-23] MEDS: HYDROmorphone HCl 2 MG TABLET PO ×4 (03:36→22:46)
[2024-08-23 04:00] VITALS: BP 154/67; PULSE 90; RESP 18; TEMP 36.4; O2SAT 98
[2024-08-23] MEDS: LORazepam 0.5 MG TABLET PO ×2 (06:35→14:23)
[2024-08-23] MEDS: Fluticasone/Umeclidinium/Vilanterol 200/62.5/25 BLST.W.DEV 1 PUFF INHALE (07:47)
[2024-08-23 07:48] VITALS: PULSE 80; RESP 18; O2SAT 99
[2024-08-23 07:48] LABS: Hematocrit 25.4 % (42.0-52.0); Hemoglobin 8.8 g/dl (14.0-18.0); Mean Corpuscular HGB Conc 34.6 g/dl (31.0-36.0); Mean Corpuscular Hemoglobin 33.6 pg (27.0-33.0); Mean Corpuscular Volume 96.9 fL (80.0-98.0); Mean Platelet Volume 11.2 fL (9.4-12.4); Red Blood Count 2.62 X10*6/uL (4.60-5.80); Red Cell Distribution Width 19.5 % (11.0-16.0)
[2024-08-23 07:51] LABS: NRBC Pct Auto 18.7 /100WBC (0.0-0.2); Platelet Count 26 X10*3/uL (160-400)
[2024-08-23 08:00] VITALS: BP 134/71; PULSE 80; RESP 20; TEMP 36.2; O2SAT 99
[2024-08-23 08:04] LABS: Anion Gap 13 (12-20); Blood Urea Nitrogen 22 mg/dL (9-16); Calcium 8.5 mg/dL (8.4-10.2); Carbon Dioxide 25 mmol/L (22-29); Chloride 104 mmol/L (96-108); Creatinine Clr Calc Pharmacy 112.6; Estimated Glomerular Filt Rate > 60; Glucose Random 121 mg/dL (60-115); Sodium 138 mmol/L (135-145)
[2024-08-23] MEDS: amLODIPine Besylate 2.5 MG TABLET PO (08:37)
[2024-08-23] MEDS: Gabapentin 300 MG CAPSULE PO ×3 (08:37→20:12)
[2024-08-23] MEDS: guaiFENesin LA 600 MG TAB.ER.12H PO ×2 (08:37→20:12)
[2024-08-23] MEDS: Morphine Sulfate ER 30 MG TABLET.ER 60 MG PO ×2 (08:38→20:12)
[2024-08-23] MEDS: Atorvastatin Calcium 40 MG TABLET PO (08:38)
[2024-08-23] MEDS: 0.9 % Sodium Chloride Flush 3 ML SYRINGE IVFLUSH ×3 (08:43→20:16)
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
[2024-08-23 12:22] VITALS: BP 134/73; PULSE 88; RESP 22; TEMP 36.1; O2SAT 98
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
[2024-08-23] MEDS: predniSONE 10 MG TABLET PO (13:46)
--- NOTE | 2024-08-23 15:39 | MHC.CM.PN ---
Addendum entered by Margaret Farnsworth 08/23/24 16:21: HCP NOTIFIED OF CANCELLATION VIA T/C Addendum entered by Margaret Farnsworth 08/23/24 16:18: DC HELD, PT PRESENTING WITH CONFUSION CARE ONE AWARE Original Note: CM MET WITH PTS HCP/SISTER, MARLENE TO DISCUSS DC PLANNING CM INFORMED HER THE PT HAS BEEN MEDICALLY CLEARED TO DC SHE SAYS SHE DID NOT WANT HIM TO GO TO [facility], HOWEVER THERE WERE NO OTHER BED OFFERS SONIA EXPLAINED THE BARRIERS TO FINDING A LTC BED AT WHICH TIME, MARLENE INDICATED SHE DID NOT KNOW LTC WAS THE PLAN SONIA REMINDED HER SHE HAD TOLD SONIA THAT THE PT WAS UNSAFE TO BE AT HOME ALONE ON ADMISSION MARLENE REPORTS THE PT SEEMS TO BE DOING WELL, HE IS JUST WEAK PER DISCUSSION, PT WILL GO TO STR [facility] IS OFFERING AND IS PREFERRED PER PT AND HCP PT WILL DC TO [facility] TODAY AT 1630 HOURS VIA JACK NESBITT
[2024-08-23 19:57] VITALS: BP 137/86; PULSE 92; RESP 18; TEMP 36.1; O2SAT 99
[2024-08-24 03:15] VITALS: BP 120/70; PULSE 100; RESP 20; TEMP 36.1; O2SAT 97
[2024-08-24] MEDS: dexAMETHasone 2 MG TABLET PO ×2 (03:16→10:49)
[2024-08-24] MEDS: HYDROmorphone HCl 2 MG TABLET PO ×3 (03:16→15:19)
[2024-08-24 07:20] VITALS: BP 132/74; PULSE 90; RESP 20; TEMP 36.4; O2SAT 98
[2024-08-24] MEDS: Fluticasone/Umeclidinium/Vilanterol 200/62.5/25 BLST.W.DEV 1 PUFF INHALE (07:39)
[2024-08-24 07:42] VITALS: PULSE 70; RESP 20; O2SAT 97
[2024-08-24] MEDS: Morphine Sulfate ER 30 MG TABLET.ER 60 MG PO (08:00)
[2024-08-24] MEDS: Atorvastatin Calcium 40 MG TABLET PO (08:00)
[2024-08-24] MEDS: Gabapentin 300 MG CAPSULE PO ×2 (08:01→15:19)
[2024-08-24] MEDS: guaiFENesin LA 600 MG TAB.ER.12H PO (08:01)
[2024-08-24] MEDS: amLODIPine Besylate 2.5 MG TABLET PO (08:01)
[2024-08-24] MEDS: LORazepam 0.5 MG TABLET PO (08:04)
[2024-08-24] MEDS: Milk of Magnesia 30 ML ORAL.SUSP PO (08:05)
[2024-08-24] MEDS: 0.9 % Sodium Chloride Flush 3 ML SYRINGE IVFLUSH (08:05)
--- NOTE | 2024-08-24 10:37 | MHC.CM.PN ---
Pt has been medically cleared today to go to [facility] via BLS.
[2024-08-24] MEDS: predniSONE 10 MG TABLET PO (12:53)
--- NOTE | 2024-08-24 15:46 | MHC.SLORD ---
Speech Language Pathology Order Status: Pt presents with mild to moderate cognitive limitations that interfere with verbal processing, gestalt understanding and ability to express complex thoughts verbally. Pt needs consistent cueing to maintain topic of conversation, and is experiencing mild emotional lability. Acute setting assessment is limited d/t pt state of heightened anxiety/emotion, which negatively interferes with attention, memory, processing and cognitive efficiency. shroudman recommend pt be further evaluated to establish more comprehensive information on pt overall cognitive/linguistic functioning in order to address any deficits appropriately.
[2024-08-24 16:00] VITALS: BP 123/68; PULSE 95; RESP 18; TEMP 36.1; O2SAT 95
== END 2024-08-24 17:40 | disposition skilled nursing facility (03) | DRG 808 ==
LOC: HO.ED 08-19 02:39 → HO.EDOVER 08-19 05:35 → HO.IMC 08-19 15:23
PROVIDERS: Student in an Organized Health Care Education/Training Program; Admitting Provider Physician Assistant; Emergency Provider Emergency Medicine; PCP Internal Medicine; Visit Provider Internal Medicine
DX: D61.810 Antineoplastic chemotherapy induced pancytopenia (principal); G93.6 Cerebral edema; I60.9 Nontraumatic subarachnoid hemorrhage, unspecified; C34.11 Malignant neoplasm of upper lobe, right bronchus or lung; C77.1 Secondary and unspecified malignant neoplasm of intrathoracic lymph nodes; C79.31 Secondary malignant neoplasm of brain; D68.32 Hemorrhagic disorder due to extrinsic circulating anticoagulants; C79.51 Secondary malignant neoplasm of bone; R04.0 Epistaxis; Z66 Do not resuscitate; T45.525A Adverse effect of antithrombotic drugs, initial encounter; Z79.01 Long term (current) use of anticoagulants; T45.1X5A Adverse effect of antineoplastic and immunosuppressive drugs, initial encounter; J43.9 Emphysema, unspecified; I25.10 Atherosclerotic heart disease of native coronary artery without angina pectoris; Z20.822 Contact with and (suspected) exposure to COVID-19; Z95.5 Presence of coronary angioplasty implant and graft; Z87.891 Personal history of nicotine dependence; Z79.51 Long term (current) use of inhaled steroids; Z79.899 Other long term (current) drug therapy
CPT/HCPCS: 0241U; 36415; 70450; 72125; 74176; 80048; 80076; 82140; 82803; 83880; 84484; 85007; 85025; 85027; 85610; 86850; 86900; 86901; 86923; 92507; 93005; 94640; 94664; 96125; 97162; 99285; J2270; J8540; P9016; P9073

== ENCOUNTER → 2024-08-18 18:04 | Outpatient (BNV) | payer MEDICARE, MEDICAID, SELFPAY | PROVIDERS: Emergency Provider Emergency Medicine; PCP Internal Medicine; Visit Provider Student in an Organized Health Care Education/Training Program | DX: R41.82 Altered mental status, unspecified (principal); V89.2XXA Person injured in unspecified motor-vehicle accident, traffic, initial encounter | CPT/HCPCS: 70450 ==

== ENCOUNTER → 2024-08-18 21:23 | Outpatient (BNV) | payer MEDICARE, MEDICAID, SELFPAY | PROVIDERS: Admitting Provider Physician Assistant; Emergency Provider Emergency Medicine; PCP Internal Medicine; Visit Provider Internal Medicine | DX: I25.2 Old myocardial infarction (principal) | CPT/HCPCS: 93010 ==

== ENCOUNTER → 2024-08-19 01:00 | Outpatient (BNV) | payer MEDICARE, MEDICAID, SELFPAY | PROVIDERS: Emergency Provider Emergency Medicine; PCP Internal Medicine; Visit Provider Radiology Diagnostic Radiology | DX: S32.030A Wedge compression fracture of third lumbar vertebra, initial encounter for closed fracture (principal); J43.9 Emphysema, unspecified; J98.11 Atelectasis; R91.8 Other nonspecific abnormal finding of lung field; D69.6 Thrombocytopenia, unspecified; G47.51 Confusional arousals | CPT/HCPCS: 70450 ==

== ENCOUNTER 2024-08-19 05:32 | Outpatient (BNV) | payer MEDICARE, MEDICAID, SELFPAY | END 2024-08-23 16:18 | PROVIDERS: Admitting Provider Physician Assistant; Emergency Provider Emergency Medicine; PCP Internal Medicine; Visit Provider Radiology Diagnostic Radiology | DX: C71.3 Malignant neoplasm of parietal lobe (principal) | CPT/HCPCS: 70450 ==

== ENCOUNTER → 2024-08-19 05:32 | Outpatient (BNV) | payer MEDICARE, MEDICAID, SELFPAY | PROVIDERS: Admitting Provider Physician Assistant; Emergency Provider Emergency Medicine; PCP Internal Medicine; Visit Provider Internal Medicine | DX: E66.9 Obesity, unspecified (principal); R79.89 Other specified abnormal findings of blood chemistry; I61.9 Nontraumatic intracerebral hemorrhage, unspecified; R41.82 Altered mental status, unspecified; C34.90 Malignant neoplasm of unspecified part of unspecified bronchus or lung; D61.818 Other pancytopenia; R04.0 Epistaxis | CPT/HCPCS: 99223; 99232; 99233; 99239; 99497; 99499 ==

== ENCOUNTER → 2024-08-19 05:32 | Outpatient (BNV) | payer MEDICARE, MEDICAID, SELFPAY | PROVIDERS: Admitting Provider Physician Assistant; Emergency Provider Emergency Medicine; PCP Internal Medicine; Visit Provider Internal Medicine | DX: C34.11 Malignant neoplasm of upper lobe, right bronchus or lung (principal); C79.31 Secondary malignant neoplasm of brain; C79.51 Secondary malignant neoplasm of bone; C77.9 Secondary and unspecified malignant neoplasm of lymph node, unspecified | CPT/HCPCS: 99232 ==